=== PATIENT | female | born 1940 | race Caucasian/White ===

== ENCOUNTER 2017-05-26 00:52 | Inpatient (IN) | payer MEDICARE, OTHER ==
[~2017-05-26] VITALS: Ht 149.9 cm; Wt 83.0 kg
[2017-05-26] VITALS (10 sets, daily range): BP systolic 108–139; BP diastolic 45–88
[~2017-05-26 00:52] MED LIST: ALPR-384 PO; ASPI81TA52 PO; ATOR10TA87 PO; CLOP75TA35 PO; LEVO150T PO; LINA145C PO; LYR75C PO; METH500T PO
[2017-05-26] MEDS ORDERED: normal saline 1000ML IV soln IV ONE (01:15)
[2017-05-26] MEDS ORDERED: acetaminophen 325mg tablet PO ONE (01:20)
[2017-05-26 02:01] LABS: BASOPHILS # (AUTO) 0.1 X10'3 (0-0.2); BASOPHILS % (AUTO) 0.5 % (0-1); EOSINOPHILS # (AUTO) 0.4 X10'3 (0-0.9); EOSINOPHILS % (AUTO) 3.5 % (0-6); LYMPHOCYTES % (AUTO) 15.8 % (21-51); MEAN CORPUSCULAR HEMOGLOBIN 30.6 PG (27.0-31.0); MEAN CORPUSCULAR HGB CONC 35.1 % (33.0-36.5); MEAN CORPUSCULAR VOLUME 87.1 FL (78-98); MEAN PLATELET VOLUME 7.6 FL (7.4-10.4); MONOCYTES # (AUTO) 1.3 X10'3 (0-0.9); MONOCYTES % (AUTO) 10.8 % (2-12); NEUTROPHILS # (AUTO) 8.6 X10'3 (1.8-7.7); NEUTROPHILS % (AUTO) 69.4 % (42-75); PLATELET COUNT 474 X10'3 (140-440); WHITE BLOOD COUNT 12.4 X10'3 (4.5-11.0)
[2017-05-26 02:09] LABS: HEMOGLOBIN 5.8 g/dl (12.0-16.0)
[2017-05-26 02:10] LABS: HEMATOCRIT 16.6 % (35.0-45.0)
[2017-05-26 02:13] LABS: INR 0.9 INR; PARTIAL THROMBOPLASTIN TIME 30 SECONDS (22-32); PROTHROMBIN TIME 9.6 SECONDS (9.0-12.0)
[2017-05-26 02:16] LABS: ALANINE AMINOTRANSFERASE 25 U/L (12-78); ALBUMIN 3.6 G/DL (3.4-5.0); ALBUMIN/GLOBULIN RATIO 0.9 (1.1-1.5); ALKALINE PHOSPHATASE 75 IU/L (46-116); ANION GAP 9 (8-16); ASPARTATE AMINO TRANSFERASE 18 U/L (10-37); BILIRUBIN,TOTAL 0.4 MG/DL (0.1-1.0); BLOOD UREA NITROGEN 17 MG/DL (7-18); BUN/CREATININE RATIO 16.2 (6.6-38.0); CALCIUM 9.7 MG/DL (8.5-10.1); CHLORIDE 102 MMOL/L (99-107); CREATININE 1.05 MG/DL (0.40-0.90); GLUCOSE 103 MG/DL (70-104); MAGNESIUM 1.9 MG/DL (1.5-2.4); POTASSIUM 4.5 MMOL/L (3.5-5.1); SODIUM 137 MMOL/L (135-145); TOTAL CARBON DIOXIDE 26.2 MMOL/L (24-32); TOTAL PROTEIN 7.6 G/DL (6.4-8.2); eGFR 51 ML/MIN
[2017-05-26] MEDS ORDERED: oseltamivir phos 75mg capsule PO ONE (02:40)
[2017-05-26] MEDS: normal saline 1000ml 1,000 ML IV SCH ×3 (02:57→22:57)
[2017-05-26 03:00] LABS: CLARITY,URINE CLEAR (Clear); COLOR,URINE YELLOW (Yellow); GLUCOSE, URINE NEGATIVE (Neg); KETONES,URINE NEGATIVE (Neg); LEUKOCYTE ESTERASE ,URINE TRACE (Neg); NITRITES, URINE NEGATIVE (Neg); OCCULT BLOOD,URINE NEGATIVE (Neg); PROTEIN,URINE NEGATIVE (Neg); UA COLLECTION TYPE CLN CATCH MIDSTREAM; UROBILINOGEN,URINE 0.2 E.U/dL (0.2-1.0)
[2017-05-26] MEDS ORDERED: potassium Cl 40MEQ/NS 500ml 500 ML IV PRN ×2 (03:00)
[2017-05-26] MEDS ORDERED: magnesium 2GM in 50ml NS 50 ML IV PRN (03:00)
[2017-05-26] MEDS ORDERED: potassium Cl 20 mEq SR tablet PO PRN ×2 (03:00)
[2017-05-26] MEDS ORDERED: magnesium hydroxide 30ml (MOM) UD suspension PO PRN (03:00)
[2017-05-26] MEDS ORDERED: ipratropium/albuterol 3ml nebule NEB PRN (03:00)
[2017-05-26] MEDS ORDERED: HYDROmorphone inj. 0.5 MG/0.5 ML DISP.SYRIN IV PRN ×2 (03:00)
[2017-05-26] MEDS ORDERED: magnesium 4gm in 100ml NS 100 ML IV PRN (03:00)
[2017-05-26] MEDS ORDERED: ondansetron/PF 4mg/2ml inj IV PRN (03:00)
[2017-05-26] MEDS ORDERED: magnesium Cl slow-release 64mg tablet PO PRN (03:00)
[2017-05-26] MEDS ORDERED: mag hydrox/Alum hydrox/simeth 30ml oral suspension PO PRN (03:00)
[2017-05-26] MEDS ORDERED: albuterol 2.5 MG/3 ML nebule NEB PRN (03:00)
[2017-05-26 03:08] LABS: BACTERIA,URINE FEW /HPF (Neg); MUCUS STRANDS FEW /LPF (Neg); RBC,URINE NONE SEEN /HPF (0-2); SQUAMOUS EPITHELIAL CELL,UR FEW /LPF (FEW)
[2017-05-26 03:43] LABS: % IRON SATURATION 11 % (11-46); IRON 27 UG/DL (49-151); TOTAL IRON BINDING CAPACITY 257 UG/DL (259-388)
[2017-05-26 03:54] LABS: TOTAL CELLS COUNTED 100
[2017-05-26 03:55] LABS: LARGE PLATELETS FEW; PLATELET ESTIMATE INCREASED
[2017-05-26] MEDS: levoFLOXACIN-Levaquin 500mg/D5 100 ML IV SCH ×2 (05:00→20:22)
[2017-05-26] MEDS: pregabalin 75mg capsule PO SCH (08:00)
[2017-05-26] MEDS: K and/or MAG REPLACEMENT MC SCH (08:00)
[2017-05-26] MEDS: cyclobenzaprine 10mg tablet PO SCH ×3 (08:00→20:21)
[2017-05-26] MEDS: levoTHYROXINE 75mcg tablet PO SCH (08:11)
[2017-05-26] MEDS: lactobacillus rhamnosus 10,000 MMU CELLS/CAPSULE PO SCH ×2 (08:11→20:20)
[2017-05-26] MEDS: diatr meglu/diatrizoate 30ml oral sol.-(3 dose) bottle PO SCH ×3 (09:50→16:36)
[2017-05-26 12:16] LABS: HEMATOCRIT 40.9 % (35.0-45.0); HEMOGLOBIN 13.9 g/dl (12.0-16.0); MEAN CORPUSCULAR HEMOGLOBIN 29.8 PG (27.0-31.0); MEAN CORPUSCULAR HGB CONC 34.1 % (33.0-36.5); MEAN CORPUSCULAR VOLUME 87.4 FL (78-98); MEAN PLATELET VOLUME 7.4 FL (7.4-10.4); PLATELET COUNT 275 X10'3 (140-440); RED BLOOD COUNT 4.68 X10'6 (4.20-5.60); RED CELL DISTRIBUTION WIDTH 14.1 % (11.5-14.5); WHITE BLOOD COUNT 4.9 X10'3 (4.5-11.0)
[2017-05-26] MEDS ORDERED: iohexol 300mg/ml 100ml inj. ONE (16:29)
[2017-05-26] MEDS ORDERED: diatr meglu/diatrizoate 30ml oral sol.-(3 dose) bottle PO ONE (16:35)
[2017-05-26 19:52] LABS: HEMATOCRIT 41.8 % (35.0-45.0); HEMOGLOBIN 14.3 g/dl (12.0-16.0); MEAN CORPUSCULAR HEMOGLOBIN 29.8 PG (27.0-31.0); MEAN CORPUSCULAR HGB CONC 34.2 % (33.0-36.5); MEAN CORPUSCULAR VOLUME 87.1 FL (78-98); MEAN PLATELET VOLUME 7.4 FL (7.4-10.4); PLATELET COUNT 268 X10'3 (140-440); RED CELL DISTRIBUTION WIDTH 14.2 % (11.5-14.5); WHITE BLOOD COUNT 5.8 X10'3 (4.5-11.0)
[2017-05-26] MEDS: acetaminophen 325mg tablet PO PRN (20:19)
[2017-05-26] MEDS ORDERED: atorvastatin 10mg tablet PO SCH (21:00)
[2017-05-26] MEDS ORDERED: temazepam 15mg capsule PO PRN (21:00)
[2017-05-27] MEDS: benzonatate 100mg capsule PO PRN ×2 (01:08→09:10)
[2017-05-27 03:00] VITALS: BP 101/45
[2017-05-27 05:03] LABS: ANION GAP 9 (8-16); BLOOD UREA NITROGEN 13 MG/DL (7-18); BUN/CREATININE RATIO 12.6 (6.6-38.0); CHLORIDE 107 MMOL/L (99-107); CREATININE 1.03 MG/DL (0.40-0.90); GLUCOSE 92 MG/DL (70-104); MAGNESIUM 1.9 MG/DL (1.5-2.4); POTASSIUM 4.2 MMOL/L (3.5-5.1); SODIUM 143 MMOL/L (135-145); TOTAL CARBON DIOXIDE 27.1 MMOL/L (24-32); eGFR 52 ML/MIN
[2017-05-27 05:17] LABS: BASOPHILS % (AUTO) 0.5 % (0-1); EOSINOPHILS # (AUTO) 0.2 X10'3 (0-0.9); EOSINOPHILS % (AUTO) 4.3 % (0-6); HEMOGLOBIN 13.5 g/dl (12.0-16.0); LYMPHOCYTES # (AUTO) 1.3 X10'3 (1.1-4.8); LYMPHOCYTES % (AUTO) 26.9 % (21-51); MEAN CORPUSCULAR HEMOGLOBIN 29.3 PG (27.0-31.0); MEAN CORPUSCULAR HGB CONC 33.8 % (33.0-36.5); MEAN CORPUSCULAR VOLUME 86.6 FL (78-98); MEAN PLATELET VOLUME 7.8 FL (7.4-10.4); MONOCYTES # (AUTO) 0.9 X10'3 (0-0.9); MONOCYTES % (AUTO) 17.8 % (2-12); NEUTROPHILS # (AUTO) 2.5 X10'3 (1.8-7.7); NEUTROPHILS % (AUTO) 50.5 % (42-75); PLATELET COUNT 274 X10'3 (140-440); RED BLOOD COUNT 4.61 X10'6 (4.20-5.60); RED CELL DISTRIBUTION WIDTH 13.3 % (11.5-14.5); WHITE BLOOD COUNT 4.9 X10'3 (4.5-11.0)
[2017-05-27 06:00] VITALS: BP 136/81
[2017-05-27] MEDS: pregabalin 75mg capsule PO SCH (07:06)
[2017-05-27] MEDS: cyclobenzaprine 10mg tablet PO SCH ×2 (07:06→12:58)
[2017-05-27] MEDS: lactobacillus rhamnosus 10,000 MMU CELLS/CAPSULE PO SCH (07:47)
[2017-05-27] MEDS: levoTHYROXINE 75mcg tablet PO SCH (07:48)
[2017-05-27] MEDS: normal saline 1000ml 1,000 ML IV SCH (07:51)
[2017-05-27] MEDS: K and/or MAG REPLACEMENT MC SCH (07:54)
[2017-05-27 11:00] VITALS: BP 137/75
[2017-05-27 11:01] LABS: HEMATOCRIT 38.4 % (35.0-45.0); HEMOGLOBIN 13.2 g/dl (12.0-16.0); MEAN CORPUSCULAR HEMOGLOBIN 29.8 PG (27.0-31.0); MEAN CORPUSCULAR HGB CONC 34.4 % (33.0-36.5); MEAN CORPUSCULAR VOLUME 86.8 FL (78-98); MEAN PLATELET VOLUME 7.4 FL (7.4-10.4); PLATELET COUNT 250 X10'3 (140-440); RED BLOOD COUNT 4.43 X10'6 (4.20-5.60); RED CELL DISTRIBUTION WIDTH 14.2 % (11.5-14.5); WHITE BLOOD COUNT 5.3 X10'3 (4.5-11.0)
[2017-05-27] MEDS ORDERED: LEVO500T2 PO (11:18)
[2017-05-27] MEDS ORDERED: FERR325T39 PO (11:18)
[2017-05-27] MEDS ORDERED: ALBU8.5H8 INH (11:18)
[2017-05-27] MEDS ORDERED: benzocaine/menthol oral lozeng 1 EACH BOX MM PRN (12:10)
[2017-05-27] MEDS: acetaminophen 325mg tablet PO PRN (13:06)
[2017-05-27 14:42] LABS: OCCULT BLOOD STOOL NEGATIVE (Neg)
== END 2017-05-27 14:50 | disposition home or self-care (01) | DRG 812 ==
LOC: ER 00:53 → ED HOLD 02:57 → PCU 3S 07:45
PROVIDERS: ADMIT Internal Medicine; ATTEND Internal Medicine
PROC: 30233N1 Transfusion of Nonautologous Red Blood Cells into Peripheral Vein, Percutaneous Approach (ICD-10-PCS; principal; 2017-05-26)
DX: D50.9 Iron deficiency anemia, unspecified (principal); J20.9 Acute bronchitis, unspecified; E03.9 Hypothyroidism, unspecified; E78.00 Pure hypercholesterolemia, unspecified; F32.89 Other specified depressive episodes; Z86.73 Personal history of transient ischemic attack (TIA), and cerebral infarction without residual deficits; Z88.8 Allergy status to other drugs, medicaments and biological substances; Z98.49 Cataract extraction status, unspecified eye
CPT/HCPCS: 36415; 71045; 74177; 80048; 80053; 81001; 82272; 83540; 83550; 83605; 83735; 84145; 85025; 85027; 85610; 85730; 86885; 86900; 86901; 86920; 86945; 87040; 87070; 87088; 93005; 93306; 94760; 99285; J1956; J7030; P9016; Q9963; Q9967

== ENCOUNTER 2018-01-30 22:52 | Emergency (ER) | payer MEDICARE, OTHER ==
[~2018-01-30] VITALS: Ht 152.4 cm; Wt 77.0 kg
[~2018-01-30 22:52] MED LIST changes: +ALBU8.5H8 INH; +FERR325T39 PO
[2018-01-30 23:30] LABS: BASOPHILS % (AUTO) 0.4 % (0-1); EOSINOPHILS # (AUTO) 0.2 X10'3 (0-0.9); EOSINOPHILS % (AUTO) 2.7 % (0-6); HEMOGLOBIN 12.4 g/dl (12.0-16.0); LYMPHOCYTES # (AUTO) 2.3 X10'3 (1.1-4.8); MEAN CORPUSCULAR HEMOGLOBIN 29.8 PG (27.0-31.0); MEAN CORPUSCULAR HGB CONC 33.6 % (33.0-36.5); MEAN CORPUSCULAR VOLUME 88.6 FL (78-98); MEAN PLATELET VOLUME 7.9 FL (7.4-10.4); MONOCYTES # (AUTO) 0.5 X10'3 (0-0.9); MONOCYTES % (AUTO) 7.8 % (2-12); NEUTROPHILS # (AUTO) 3.9 X10'3 (1.8-7.7); NEUTROPHILS % (AUTO) 56.1 % (42-75); PLATELET COUNT 317 X10'3 (140-440); RED BLOOD COUNT 4.18 X10'6 (4.20-5.60)
[2018-01-30 23:42] LABS: ALANINE AMINOTRANSFERASE 18 U/L (12-78); ALBUMIN 3.8 G/DL (3.4-5.0); ALBUMIN/GLOBULIN RATIO 1.1 (1.1-1.5); ALKALINE PHOSPHATASE 94 IU/L (46-116); ANION GAP 11 (8-16); ASPARTATE AMINO TRANSFERASE 16 U/L (10-37); BILIRUBIN,TOTAL 0.2 MG/DL (0.1-1.0); BLOOD UREA NITROGEN 11 MG/DL (7-18); BUN/CREATININE RATIO 11.1 (6.6-38.0); CALCIUM 9.5 MG/DL (8.5-10.1); CHLORIDE 104 MMOL/L (99-107); CREATININE 0.99 MG/DL (0.40-0.90); GLUCOSE 102 MG/DL (70-104); POTASSIUM 3.9 MMOL/L (3.5-5.1); SODIUM 140 MMOL/L (135-145); TOTAL CARBON DIOXIDE 24.8 MMOL/L (24-32); TOTAL PROTEIN 7.4 G/DL (6.4-8.2); eGFR 54 ML/MIN
[2018-01-30 23:46] LABS: INR 0.9 INR; PROTHROMBIN TIME 9.2 SECONDS (9.0-12.0)
[2018-01-31] MEDS ORDERED: acetaminophen 325mg tablet PO ONE (00:05)
[2018-01-31 00:20] LABS: CLARITY,URINE CLEAR (Clear); COLOR,URINE YELLOW (Yellow); GLUCOSE, URINE NEGATIVE (Neg); KETONES,URINE NEGATIVE (Neg); LEUKOCYTE ESTERASE ,URINE NEGATIVE (Neg); NITRITES, URINE NEGATIVE (Neg); OCCULT BLOOD,URINE NEGATIVE (Neg); PH,URINE 5.5 (4.8-8.0); PROTEIN,URINE NEGATIVE (Neg); UROBILINOGEN,URINE 0.2 E.U/dL (0.2-1.0)
[2018-01-31 00:23] LABS: UA COLLECTION TYPE CLN CATCH MIDSTREAM
[2018-01-31 00:30] LABS: LIPASE 266 U/L (73-393)
[2018-01-31] MEDS ORDERED: BISA-155 PO (01:38)
[2018-01-31] MEDS ORDERED: HYDR-3965 PO (01:38)
[2018-01-31] MEDS ORDERED: HYDROcodone/acetaminophen 5mg/325mg tablet PO ONE (01:40)
[2018-01-31] MEDS ORDERED: dicyclomine 10 MG capsule PO ONE (01:40)
[2018-01-31 01:58] VITALS: BP 154/78
== END 2018-01-31 01:59 | disposition home or self-care (01) ==
LOC: ER 22:52
DX: R10.31 Right lower quadrant pain (principal); E78.00 Pure hypercholesterolemia, unspecified; E03.9 Hypothyroidism, unspecified; G89.29 Other chronic pain; Z86.73 Personal history of transient ischemic attack (TIA), and cerebral infarction without residual deficits; Z98.890 Other specified postprocedural states; Z88.8 Allergy status to other drugs, medicaments and biological substances; Z79.82 Long term (current) use of aspirin; Z79.899 Other long term (current) drug therapy
CPT/HCPCS: 36415; 74176; 80053; 81003; 83605; 83690; 85025; 85610; 99284

== ENCOUNTER 2018-06-11 18:58 | Inpatient (IN) | payer MEDICARE, OTHER ==
[~2018-06-11] VITALS: Ht 149.9 cm; Wt 72.7 kg
[~2018-06-11 18:58] MED LIST changes: +BISA-155 PO
[2018-06-11] MEDS ORDERED: CefTRIAXone 2gm/D5W 50ml 50 ML IV ONE (21:05)
[2018-06-11] MEDS ORDERED: normal saline 1000ML IV soln IV ONE (21:05)
[2018-06-11 21:21] LABS: BASOPHILS % (AUTO) 0.6 % (0-1); EOSINOPHILS # (AUTO) 0.1 X10'3 (0-0.9); EOSINOPHILS % (AUTO) 1.2 % (0-6); HEMATOCRIT 37.7 % (35.0-45.0); HEMOGLOBIN 12.5 g/dl (12.0-16.0); LYMPHOCYTES # (AUTO) 1.3 X10'3 (1.1-4.8); LYMPHOCYTES % (AUTO) 25.7 % (21-51); MEAN CORPUSCULAR HEMOGLOBIN 29.2 PG (27.0-31.0); MEAN CORPUSCULAR HGB CONC 33.1 g/dL (33.0-36.5); MEAN CORPUSCULAR VOLUME 88.1 FL (78-98); MEAN PLATELET VOLUME 7.3 FL (7.4-10.4); MONOCYTES # (AUTO) 0.8 X10'3 (0-0.9); NEUTROPHILS # (AUTO) 2.9 X10'3 (1.8-7.7); NEUTROPHILS % (AUTO) 57.5 % (42-75); PLATELET COUNT 267 X10'3 (140-440); RED BLOOD COUNT 4.28 X10'6 (4.20-5.60); RED CELL DISTRIBUTION WIDTH 14.2 % (11.5-14.5); WHITE BLOOD COUNT 5.1 X10'3 (4.5-11.0)
[2018-06-11 21:41] LABS: ALANINE AMINOTRANSFERASE 21 U/L (12-78); ALBUMIN 3.7 G/DL (3.4-5.0); ALKALINE PHOSPHATASE 73 IU/L (46-116); ANION GAP 11 (8-16); ASPARTATE AMINO TRANSFERASE 19 U/L (10-37); BILIRUBIN,TOTAL 0.3 MG/DL (0.1-1.0); BLOOD UREA NITROGEN 24 MG/DL (7-18); BUN/CREATININE RATIO 19.4 (6.6-38.0); CALCIUM 9.5 MG/DL (8.5-10.1); CHLORIDE 103 MMOL/L (99-107); CREATININE 1.24 MG/DL (0.40-0.90); GLUCOSE 111 MG/DL (70-104); SODIUM 139 MMOL/L (135-145); TOTAL CARBON DIOXIDE 25.3 MMOL/L (24-32); TOTAL PROTEIN 7.3 G/DL (6.4-8.2); eGFR 42 ML/MIN
[2018-06-11 21:56] LABS: INR 0.9 INR; PARTIAL THROMBOPLASTIN TIME 34 SECONDS (22-32)
--- NOTE | 2018-06-11 22:14 | NUR ---
HR 121, ST. PT REPORTS GENERALIZED "PAIN ALL OVER". ABDIEL TINSLEY, AT BEDSIDE.
[2018-06-11] MEDS ORDERED: normal saline 1000ML IV soln IVB ONE (22:35)
[2018-06-11] MEDS ORDERED: ATOR10TA87 PO (22:52)
[2018-06-11 22:54] LABS: CLARITY,URINE CLEAR (Clear); COLOR,URINE YELLOW (Yellow); GLUCOSE, URINE NEGATIVE (Neg); KETONES,URINE NEGATIVE (Neg); LEUKOCYTE ESTERASE ,URINE SMALL (Neg); NITRITES, URINE NEGATIVE (Neg); OCCULT BLOOD,URINE NEGATIVE (Neg); PH,URINE 5.5 (4.8-8.0); PROTEIN,URINE NEGATIVE (Neg); UROBILINOGEN,URINE 0.2 E.U/dL (0.2-1.0)
--- NOTE | 2018-06-11 22:55 | NUR ---
MARLIN GAINES TALKING WITH PT AND ALVINA ABOUT ADMISSION. PT IS AGREEABLE TO THIS PLAN. HR 122, OTHERWISE VSS. MED REC COMPLETED
[2018-06-11 22:59] LABS: UA COLLECTION TYPE NON-SPECIFIED
[2018-06-11 23:00] LABS: BACTERIA,URINE NONE SEEN /HPF (Neg); MUCUS STRANDS NONE SEEN /LPF (Neg); RBC,URINE 0-2 /HPF (0-2); SQUAMOUS EPITHELIAL CELL,UR MODERATE /LPF (FEW); WBC,URINE 0-4 /HPF (0-4)
[2018-06-11] MEDS ORDERED: iohexol 350MG/ML 100ml bottle IV ONE (23:14)
--- NOTE | 2018-06-12 00:06 | NUR ---
PT RETURNED FROM CTA. AWAITING HOSPITALIST
--- NOTE | 2018-06-12 00:14 | NUR ---
PT RETURNED FROM CT AND WHEN HOOKED UP BACK TO THE MONITOR HR 158. MARLIN GAINES UPDATED. STAT EKG ORDERED
--- NOTE | 2018-06-12 00:30 | NUR ---
VERBAL RECEIVED FOR TROP SERIES BY MARLIN GAINES.
--- NOTE | 2018-06-12 00:56 | NUR ---
Dr. Walker updated that pt now wheezy after several coughing episodes. Pt reprots feeling "terrible". to order svn.
[2018-06-12] MEDS ORDERED: ipratropium/albuterol 3ml nebule NEB ONE (01:00)
--- NOTE | 2018-06-12 01:12 | NUR ---
rt at bedside now starting svn.
--- NOTE | 2018-06-12 01:32 | NUR ---
PT ASSISTED TO BSC TO VOID. 3RD LITER COMPLETED. PT REPORTS SOME RELIEF FROM SVN TREATMENT. AWAITING CT RESULTS.
[2018-06-12] MEDS ORDERED: azithromycin/NS 500mg/250ml 250 ML IV ONE (01:45)
[2018-06-12] MEDS ORDERED: benzonatate 100mg capsule PO ONE (01:55)
--- NOTE | 2018-06-12 02:44 | NUR ---
dr davalos request pt to be ambulated and to check gait, hr and o2sats. tis is a request from the hospitalist.
[2018-06-12] MEDS ORDERED: metoprolol tartrate 1mg/ml inj IV ONE (03:05)
--- NOTE | 2018-06-12 03:08 | NUR ---
DR. JERNIGAN AT BEDSIDE FOR ADMISSION. HR REMAINS 125.
[2018-06-12] MEDS ORDERED: guaiFENesin/codeine phos 10ml UD oral syrup PO ONE (03:20)
[2018-06-12] MEDS ORDERED: acetaminophen 325mg tablet PO PRN (03:30)
[2018-06-12] MEDS ORDERED: HYDROcodone/acetaminophen 5mg/325mg tablet PO PRN (03:30)
[2018-06-12] MEDS ORDERED: magnesium hydroxide 30ml (MOM) UD suspension PO PRN (03:30)
[2018-06-12] MEDS ORDERED: ondansetron/PF 4mg/2ml inj IV PRN (03:30)
[2018-06-12] MEDS ORDERED: metoprolol tartrate 1mg/ml inj IV PRN (03:30)
[2018-06-12] MEDS ORDERED: mag hydrox/Alum hydrox/simeth 30ml oral suspension PO PRN (03:30)
[2018-06-12] MEDS: normal saline 1000ml 1,000 ML IV SCH ×3 (03:44→23:58)
[2018-06-12 04:30] VITALS: BP 149/78
[2018-06-12 06:00] VITALS: BP 122/59
--- NOTE | 2018-06-12 06:18 | NUR ---
Patient in room PCU 3015. I have received report from VICTOR MANUEL Villanueva and had the opportunity to ask questions and assume patient care.
[2018-06-12] MEDS: azithromycin 250mg tablet PO SCH (08:04)
[2018-06-12] MEDS: aspirin 81mg tablet.DR PO SCH (08:04)
[2018-06-12] MEDS: guaiFENesin/codeine phos 10ml UD oral syrup PO PRN ×5 (08:04→22:41)
[2018-06-12] MEDS: metoprolol tartrate 25mg tablet PO SCH ×2 (08:05→19:43)
[2018-06-12] MEDS: atorvastatin 10mg tablet PO SCH (08:05)
[2018-06-12] MEDS ORDERED: magnesium Cl slow-release 64mg tablet PO PRN (08:50)
[2018-06-12] MEDS ORDERED: potassium Cl 40MEQ/NS 500ml 500 ML IV PRN ×2 (08:50)
[2018-06-12] MEDS ORDERED: potassium Cl 20 mEq SR tablet PO PRN ×2 (08:50)
[2018-06-12] MEDS ORDERED: magnesium 4gm in 100ml NS 100 ML IV PRN (08:50)
[2018-06-12 11:00] VITALS: BP 118/67
[2018-06-12 15:00] VITALS: BP 128/71
--- NOTE | 2018-06-12 15:20 | NUR ---
Robitussin with codeine administered for cough as well as pain r/t cough.
--- NOTE | 2018-06-12 15:34 | NUR ---
PAGER ID: [phone] MESSAGE: [id number] Channing He Pt wheezy, SOB, 95% on RA. Requesting breathing tx, says shiva was effective in ED. VICTOR MANUEL Jamil [id number] Addendum: 06/12/18 at 1549 by Erin Dowling RN Received return call from kamran Candelaria to do Q4H PRN duoneb tx for SOB/wheezing, scheduled Q6HRT duoneb txs.
--- NOTE | 2018-06-12 15:50 | NUR ---
Sent page to RT for breathing tx due to pt is wheezy and c/o SOB, satting 95-96% on RA
[2018-06-12] MEDS: ipratropium/albuterol 3ml nebule NEB PRN (16:29)
[2018-06-12 18:00] VITALS: BP 121/58
--- NOTE | 2018-06-12 18:40 | NUR ---
Problems reprioritized. Patient report given, questions answered & plan of care reviewed with VICTOR MANUEL Tesfaye.
--- NOTE | 2018-06-12 18:43 | NUR ---
Patient in room PCU 3015. I have received report from Loulou RUSH and had the opportunity to ask questions and assume patient care.
[2018-06-12] MEDS: ipratropium/albuterol 3ml nebule NEB SCH (20:07)
[2018-06-12 22:00] VITALS: BP 136/73
[2018-06-12] MEDS: HYDROcodone/acetaminophen 10/325mg tab PO PRN (22:45)
[2018-06-13 02:00] VITALS: BP 112/64
[2018-06-13] MEDS: ipratropium/albuterol 3ml nebule NEB SCH ×4 (02:03→20:13)
--- NOTE | 2018-06-13 04:00 | NUR ---
Patient upset with the IV pump beeping when patient bends arm form AC IV. Patient offered new IV but doesn't want to be poked again. Patient asking for tongue depressors to be taped to arm so she can not bend it. Arm board was placed per patient's request.
[2018-06-13] MEDS: guaiFENesin/codeine phos 10ml UD oral syrup PO PRN ×2 (05:08→20:37)
[2018-06-13 05:56] LABS: BASOPHILS % (AUTO) 0.3 % (0-1); EOSINOPHILS # (AUTO) 0.1 X10'3 (0-0.9); EOSINOPHILS % (AUTO) 1.4 % (0-6); HEMATOCRIT 32.7 % (35.0-45.0); HEMOGLOBIN 10.8 g/dl (12.0-16.0); LYMPHOCYTES # (AUTO) 1.4 X10'3 (1.1-4.8); LYMPHOCYTES % (AUTO) 23.6 % (21-51); MEAN CORPUSCULAR HEMOGLOBIN 29.7 PG (27.0-31.0); MEAN CORPUSCULAR HGB CONC 32.9 g/dL (33.0-36.5); MEAN CORPUSCULAR VOLUME 90.4 FL (78-98); MEAN PLATELET VOLUME 7.6 FL (7.4-10.4); MONOCYTES # (AUTO) 0.7 X10'3 (0-0.9); MONOCYTES % (AUTO) 11.9 % (2-12); NEUTROPHILS # (AUTO) 3.7 X10'3 (1.8-7.7); NEUTROPHILS % (AUTO) 62.8 % (42-75); PLATELET COUNT 206 X10'3 (140-440); RED BLOOD COUNT 3.62 X10'6 (4.20-5.60); RED CELL DISTRIBUTION WIDTH 14.2 % (11.5-14.5); WHITE BLOOD COUNT 5.8 X10'3 (4.5-11.0)
[2018-06-13 06:00] VITALS: BP 110/61
--- NOTE | 2018-06-13 06:26 | NUR ---
Problems reprioritized. Patient report given, questions answered & plan of care reviewed with Loulou RUSH and Silvia RUSH.
[2018-06-13 06:27] LABS: ALANINE AMINOTRANSFERASE 15 U/L (12-78); ALBUMIN 3.1 G/DL (3.4-5.0); ALBUMIN/GLOBULIN RATIO 0.9 (1.1-1.5); ALKALINE PHOSPHATASE 49 IU/L (46-116); ANION GAP 10 (8-16); ASPARTATE AMINO TRANSFERASE 18 U/L (10-37); BILIRUBIN,TOTAL 0.2 MG/DL (0.1-1.0); BLOOD UREA NITROGEN 15 MG/DL (7-18); BUN/CREATININE RATIO 13.9 (6.6-38.0); CALCIUM 8.2 MG/DL (8.5-10.1); CHLORIDE 107 MMOL/L (99-107); CREATININE 1.08 MG/DL (0.40-0.90); GLUCOSE 101 MG/DL (70-104); MAGNESIUM 1.6 MG/DL (1.5-2.4); PHOSPHORUS 3.5 MG/DL (2.3-4.5); POTASSIUM 4.2 MMOL/L (3.5-5.1); SODIUM 141 MMOL/L (135-145); TOTAL PROTEIN 6.4 G/DL (6.4-8.2); eGFR 49 ML/MIN
--- NOTE | 2018-06-13 06:37 | NUR ---
Patient in room PCU 3015. I have received report from Mera RUSH and had the opportunity to ask questions and assume patient care.
[2018-06-13] MEDS: levoTHYROXINE 75mcg tablet PO SCH (06:58)
[2018-06-13] MEDS: atorvastatin 10mg tablet PO SCH (08:22)
[2018-06-13] MEDS: aspirin 81mg tablet.DR PO SCH (08:22)
[2018-06-13] MEDS: azithromycin 250mg tablet PO SCH (08:23)
[2018-06-13] MEDS: metoprolol tartrate 25mg tablet PO SCH ×2 (08:23→20:35)
[2018-06-13] MEDS: normal saline 1000ml 1,000 ML IV SCH ×2 (09:41→20:32)
[2018-06-13] MEDS ORDERED: methylPREDNISolone sod succ 125mg/2ml vial IV ONE (10:30)
[2018-06-13 11:11] VITALS: BP 117/55
[2018-06-13] MEDS: ipratropium/albuterol 3ml nebule NEB PRN (11:49)
[2018-06-13 15:15] VITALS: BP 116/56
[2018-06-13] MEDS: methylPREDNISolone sod succ 125mg/2ml vial IV SCH ×2 (16:59→23:05)
[2018-06-13 18:00] VITALS: BP 121/69
--- NOTE | 2018-06-13 18:00 | NUR ---
Orientee documentation: I have reviewed and agree with interventions, assessments performed and documented by VICTOR MANUEL Velasco.
--- NOTE | 2018-06-13 18:45 | NUR ---
Problems reprioritized. Patient report given, questions answered & plan of care reviewed with Teresa RUSH.
--- NOTE | 2018-06-13 18:49 | NUR ---
Patient in room PCU 3015. I have received report from Silvia RUSH and had the opportunity to ask questions and assume patient care.
[2018-06-13] MEDS: lactobacillus rhamnosus 10,000 MMU CELLS/CAPSULE PO SCH (20:32)
[2018-06-13 22:00] VITALS: BP 120/61
[2018-06-13] MEDS: ALPRAZolam 0.25mg tablet PO PRN (23:05)
[2018-06-13] MEDS: HYDROcodone/acetaminophen 10/325mg tab PO PRN (23:06)
[2018-06-14 02:00] VITALS: BP 146/78
[2018-06-14] MEDS: ipratropium/albuterol 3ml nebule NEB SCH ×5 (02:21→23:15)
[2018-06-14] MEDS: guaiFENesin/codeine phos 10ml UD oral syrup PO PRN ×3 (02:41→16:45)
[2018-06-14 05:21] LABS: BASOPHILS % (AUTO) 0.3 % (0-1); EOSINOPHILS % (AUTO) 0.3 % (0-6); HEMATOCRIT 31.6 % (35.0-45.0); HEMOGLOBIN 10.5 g/dl (12.0-16.0); LYMPHOCYTES # (AUTO) 0.5 X10'3 (1.1-4.8); LYMPHOCYTES % (AUTO) 14.5 % (21-51); MEAN CORPUSCULAR HEMOGLOBIN 29.6 PG (27.0-31.0); MEAN CORPUSCULAR HGB CONC 33.1 g/dL (33.0-36.5); MEAN CORPUSCULAR VOLUME 89.4 FL (78-98); MEAN PLATELET VOLUME 7.7 FL (7.4-10.4); MONOCYTES # (AUTO) 0.1 X10'3 (0-0.9); MONOCYTES % (AUTO) 3.4 % (2-12); NEUTROPHILS # (AUTO) 2.8 X10'3 (1.8-7.7); NEUTROPHILS % (AUTO) 81.5 % (42-75); PLATELET COUNT 195 X10'3 (140-440); RED BLOOD COUNT 3.53 X10'6 (4.20-5.60); RED CELL DISTRIBUTION WIDTH 13.9 % (11.5-14.5); WHITE BLOOD COUNT 3.4 X10'3 (4.5-11.0)
[2018-06-14 05:29] LABS: ALANINE AMINOTRANSFERASE 17 U/L (12-78); ALBUMIN/GLOBULIN RATIO 0.9 (1.1-1.5); ALKALINE PHOSPHATASE 49 IU/L (46-116); ANION GAP 10 (8-16); ASPARTATE AMINO TRANSFERASE 17 U/L (10-37); BILIRUBIN,TOTAL 0.2 MG/DL (0.1-1.0); BLOOD UREA NITROGEN 16 MG/DL (7-18); BUN/CREATININE RATIO 21.6 (6.6-38.0); CALCIUM 8.5 MG/DL (8.5-10.1); CHLORIDE 109 MMOL/L (99-107); CREATININE 0.74 MG/DL (0.40-0.90); GLUCOSE 148 MG/DL (70-104); MAGNESIUM 1.8 MG/DL (1.5-2.4); PHOSPHORUS 2.9 MG/DL (2.3-4.5); POTASSIUM 3.9 MMOL/L (3.5-5.1); SODIUM 142 MMOL/L (135-145); TOTAL PROTEIN 6.5 G/DL (6.4-8.2); eGFR 76 ML/MIN
--- NOTE | 2018-06-14 06:46 | NUR ---
Problems reprioritized. Patient report given, questions answered & plan of care reviewed with Silvia RUSH.
[2018-06-14] MEDS: atorvastatin 10mg tablet PO SCH (07:40)
[2018-06-14] MEDS: levoTHYROXINE 75mcg tablet PO SCH (07:40)
[2018-06-14] MEDS: aspirin 81mg tablet.DR PO SCH (07:40)
[2018-06-14] MEDS: lactobacillus rhamnosus 10,000 MMU CELLS/CAPSULE PO SCH ×2 (07:41→20:07)
[2018-06-14] MEDS: azithromycin 250mg tablet PO SCH (07:41)
[2018-06-14] MEDS: metoprolol tartrate 25mg tablet PO SCH ×2 (07:41→20:08)
[2018-06-14] MEDS: methylPREDNISolone sod succ 125mg/2ml vial IV SCH ×2 (07:42→16:44)
[2018-06-14 08:47] VITALS: BP 137/73
[2018-06-14 11:00] VITALS: BP 128/76
[2018-06-14] MEDS ORDERED: ipratropium/albuterol 3ml nebule NEB PRN (11:05)
--- NOTE | 2018-06-14 11:23 | NUR ---
Patient in room PCU 3015. I have received report from Teresa RUSH and had the opportunity to ask questions and assume patient care.
[2018-06-14] MEDS: levoFLOXACIN 500mg tablet PO SCH (11:53)
--- NOTE | 2018-06-14 14:04 | NUR ---
Orientee documentation and medication administration: I have reviewed and agree with interventions, and assessments performed and documented by VICTOR MANUEL Vega. For this medication-pass time frame, medications were reviewed, dispensed, administered and documented per hospital policy by VICTOR MANUEL Vega.
[2018-06-14 15:00] VITALS: BP 124/57
[2018-06-14 18:00] VITALS: BP 141/83
--- NOTE | 2018-06-14 18:21 | NUR ---
Problems reprioritized. Patient report given, questions answered & plan of care reviewed with Teresa RUSH.
--- NOTE | 2018-06-14 18:48 | NUR ---
Patient in room PCU 3015. I have received report from Silvia RUSH and had the opportunity to ask questions and assume patient care.
[2018-06-14 22:00] VITALS: BP 123/63
[2018-06-14] MEDS: ALPRAZolam 0.25mg tablet PO PRN (22:25)
[2018-06-14] MEDS: HYDROcodone/acetaminophen 10/325mg tab PO PRN (22:26)
[2018-06-15] MEDS: methylPREDNISolone sod succ 125mg/2ml vial IV SCH ×2 (00:20→07:28)
[2018-06-15 02:00] VITALS: BP 144/66
[2018-06-15] MEDS: ipratropium/albuterol 3ml nebule NEB SCH ×3 (02:48→11:40)
[2018-06-15 05:26] LABS: ALANINE AMINOTRANSFERASE 16 U/L (12-78); ALBUMIN 3.1 G/DL (3.4-5.0); ALBUMIN/GLOBULIN RATIO 0.9 (1.1-1.5); ALKALINE PHOSPHATASE 48 IU/L (46-116); ANION GAP 11 (8-16); ASPARTATE AMINO TRANSFERASE 14 U/L (10-37); BILIRUBIN,TOTAL 0.1 MG/DL (0.1-1.0); BLOOD UREA NITROGEN 17 MG/DL (7-18); BUN/CREATININE RATIO 19.3 (6.6-38.0); CHLORIDE 108 MMOL/L (99-107); CREATININE 0.88 MG/DL (0.40-0.90); GLUCOSE 134 MG/DL (70-104); MAGNESIUM 1.9 MG/DL (1.5-2.4); PHOSPHORUS 3.1 MG/DL (2.3-4.5); POTASSIUM 3.7 MMOL/L (3.5-5.1); SODIUM 141 MMOL/L (135-145); TOTAL CARBON DIOXIDE 22.2 MMOL/L (24-32); TOTAL PROTEIN 6.5 G/DL (6.4-8.2); eGFR 62 ML/MIN
[2018-06-15 05:51] LABS: BASOPHILS % (AUTO) 0 % (0-1); EOSINOPHILS % (AUTO) 0 % (0-6); HEMATOCRIT 30.4 % (35.0-45.0); HEMOGLOBIN 10.1 g/dl (12.0-16.0); LYMPHOCYTES # (AUTO) 0.5 X10'3 (1.1-4.8); LYMPHOCYTES % (AUTO) 4.7 % (21-51); MEAN CORPUSCULAR HEMOGLOBIN 29.8 PG (27.0-31.0); MEAN CORPUSCULAR HGB CONC 33.3 g/dL (33.0-36.5); MEAN CORPUSCULAR VOLUME 89.5 FL (78-98); MEAN PLATELET VOLUME 7.9 FL (7.4-10.4); MONOCYTES # (AUTO) 0.3 X10'3 (0-0.9); MONOCYTES % (AUTO) 2.7 % (2-12); NEUTROPHILS # (AUTO) 9.2 X10'3 (1.8-7.7); NEUTROPHILS % (AUTO) 92.6 % (42-75); PLATELET COUNT 254 X10'3 (140-440); RED CELL DISTRIBUTION WIDTH 14.3 % (11.5-14.5); WHITE BLOOD COUNT 9.9 X10'3 (4.5-11.0)
[2018-06-15] MEDS: atorvastatin 10mg tablet PO SCH (07:27)
[2018-06-15] MEDS: levoTHYROXINE 75mcg tablet PO SCH (07:27)
[2018-06-15 07:28] VITALS: BP_SYST 142
[2018-06-15] MEDS: metoprolol tartrate 25mg tablet PO SCH (07:28)
--- NOTE | 2018-06-15 07:28 | NUR ---
Problems reprioritized. Patient report given, questions answered & plan of care reviewed with Liz RSUH.
[2018-06-15] MEDS: aspirin 81mg tablet.DR PO SCH (07:29)
[2018-06-15] MEDS: lactobacillus rhamnosus 10,000 MMU CELLS/CAPSULE PO SCH (07:29)
[2018-06-15] MEDS: levoFLOXACIN 500mg tablet PO SCH (12:37)
--- NOTE | 2018-06-15 13:25 | NUR ---
Patient in room PCU 3015. I have received report from Liz RUSH and had the opportunity to ask questions and assume patient care.
--- NOTE | 2018-06-15 14:15 | NUR ---
Patient discharged at 1415. [employer]ia [employer] provided transportation and was provided with tranfer packet.. PIV removed with cannula intact, telemetry monitoring removed and all patient belongings sent with patient. Pt stable at transfer.
== END 2018-06-15 14:15 | DRG 192 ==
LOC: ER 18:59 → PCU 3S 06-12 04:32 → CMPBEDREQ 06-15 00:21
PROVIDERS: ADMIT Internal Medicine; ATTEND Family Medicine
PROC: BW241ZZ Computerized Tomography (CT Scan) of Chest and Abdomen using Low Osmolar Contrast (ICD-10-PCS; principal; 2018-06-11)
DX: J44.1 Chronic obstructive pulmonary disease with (acute) exacerbation (principal); J40 Bronchitis, not specified as acute or chronic; E78.00 Pure hypercholesterolemia, unspecified; I45.10 Unspecified right bundle-branch block; Z96.643 Presence of artificial hip joint, bilateral; E05.00 Thyrotoxicosis with diffuse goiter without thyrotoxic crisis or storm; F32.9 Major depressive disorder, single episode, unspecified; G89.29 Other chronic pain; Z79.890 Hormone replacement therapy; Z86.73 Personal history of transient ischemic attack (TIA), and cerebral infarction without residual deficits
CPT/HCPCS: 36415; 71045; 71275; 80053; 81001; 83605; 83735; 84100; 84145; 84439; 84443; 84484; 85025; 85610; 85730; 87040; 87070; 87088; 87502; 87503; 93005; 93306; 94640; 94760; 96365; 96366; 96367; 96375; 97110; 97116; 97162; 99285; G0378; J0456; J0696; J2405; J2930; J3490; J7030; Q9967

== ENCOUNTER 2018-06-21 15:36 | Inpatient (IN) | payer MEDICARE, OTHER | END 2018-06-30 12:07 | LOC: CICU 2S 06-22 00:27 → ORTHO 4S 06-25 14:35 → ER 15:36 → SUR 3N 21:10 | PROC: 0DTG0ZZ Resection of Left Large Intestine, Open Approach (ICD-10-PCS; principal; 2018-06-21 02:04) | PROC: 0DTN0ZZ Resection of Sigmoid Colon, Open Approach (ICD-10-PCS; 2018-06-21 02:04) | PROC: 0UT00ZZ Resection of Right Ovary, Open Approach (ICD-10-PCS; 2018-06-21 02:04) | PROC: 0D1M0Z4 Bypass Descending Colon to Cutaneous, Open Approach (ICD-10-PCS; 2018-06-21 02:04) | PROC: 5A1935Z Respiratory Ventilation, Less than 24 Consecutive Hours (ICD-10-PCS; 2018-06-21 02:04) | DX: K56.609 Unspecified intestinal obstruction, unspecified as to partial versus complete obstruction (principal); N17.0 Acute kidney failure with tubular necrosis; J96.00 Acute respiratory failure, unspecified whether with hypoxia or hypercapnia ==

== ENCOUNTER 2018-09-11 07:48 | Emergency (ER) | payer MEDICARE, OTHER ==
[~2018-09-11] VITALS: Ht 152.4 cm; Wt 81.2 kg
[~2018-09-11 07:48] MED LIST changes: +ACET-2144 PO; +ATOR10TA70 PO; -ATOR10TA87 PO; -BISA-155 PO; +BISA10SU60 RC; +BUDE10.22 INH; +CALC500T11 PO; -CLOP75TA35 PO; +CYCL-1 PO; +DOCU-28 PO; -FERR325T39 PO; +FOND2.5D3 SUBCUT; +HYDR-4383 PO; +IPRA3AMP31 IH; +LACT1CAP65 PO; -LEVO150T PO; +LEVO75TA PO; -LINA145C PO; -LYR75C PO; +MAG355OR18 PO; +MAGN400O6 PO; -METH500T PO; +METO50TA7 PO; +MONT10TA24 PO; +NA P133E4 RC; +TRAM50TA2 PO
[2018-09-11 08:05] VITALS: BP 149/72
[2018-09-11] MEDS ORDERED: LIDOcaine 5% patch TP STA (08:27)
[2018-09-11] MEDS ORDERED: LIDO700A32 TOP (08:41)
[2018-09-19] MEDS ORDERED: OMEP20TA5 PO (14:19)
[2018-09-19] MEDS ORDERED: BUSP10TA3 PO (14:19)
== END 2018-09-11 08:57 | disposition home or self-care (01) ==
LOC: ER 07:48
DX: M54.2 Cervicalgia (principal); E78.00 Pure hypercholesterolemia, unspecified; E03.9 Hypothyroidism, unspecified; G89.29 Other chronic pain; F32.9 Major depressive disorder, single episode, unspecified; Z98.890 Other specified postprocedural states; Z88.8 Allergy status to other drugs, medicaments and biological substances; Z79.82 Long term (current) use of aspirin; Z79.899 Other long term (current) drug therapy; Z86.73 Personal history of transient ischemic attack (TIA), and cerebral infarction without residual deficits
CPT/HCPCS: 99282

== ENCOUNTER 2018-09-25 08:06 | Inpatient (IN) | payer MEDICARE, OTHER ==
[2018-09-19 14:20] LABS: CLARITY,URINE CLEAR (Clear); COLOR,URINE YELLOW (Yellow); GLUCOSE, URINE NEGATIVE (Neg); KETONES,URINE NEGATIVE (Neg); LEUKOCYTE ESTERASE ,URINE NEGATIVE (Neg); NITRITES, URINE NEGATIVE (Neg); OCCULT BLOOD,URINE NEGATIVE (Neg); PH,URINE 5.5 (4.8-8.0); PROTEIN,URINE NEGATIVE (Neg); UROBILINOGEN,URINE 0.2 E.U/dL (0.2-1.0)
[2018-09-19 14:21] LABS: UA COLLECTION TYPE CLN CATCH MIDSTREAM
[2018-09-19 14:23] LABS: BASOPHILS % (AUTO) 0.6 % (0-1); EOSINOPHILS # (AUTO) 0.2 X10'3 (0-0.9); EOSINOPHILS % (AUTO) 2.2 % (0-6); LYMPHOCYTES # (AUTO) 2.1 X10'3 (1.1-4.8); LYMPHOCYTES % (AUTO) 26.7 % (21-51); MEAN CORPUSCULAR HEMOGLOBIN 29.8 PG (27.0-31.0); MEAN CORPUSCULAR HGB CONC 33.4 g/dL (33.0-36.5); MEAN CORPUSCULAR VOLUME 89.1 FL (78-98); MEAN PLATELET VOLUME 7.8 FL (7.4-10.4); MONOCYTES # (AUTO) 0.6 X10'3 (0-0.9); MONOCYTES % (AUTO) 7.9 % (2-12); NEUTROPHILS # (AUTO) 4.9 X10'3 (1.8-7.7); NEUTROPHILS % (AUTO) 62.6 % (42-75); PRE OP HEMATOCRIT 38.4 % (35.0-45.0); PRE OP HEMOGLOBIN 12.8 g/dL (12.0-16.0); PRE OP PLATELET COUNT 331 X10'3 (140-440); RED CELL DISTRIBUTION WIDTH 15.9 % (11.5-14.5)
[2018-09-19 14:36] LABS: PRE OP PROTIME 9.7 SECONDS (9.0-12.0)
[2018-09-19 14:37] LABS: ALBUMIN/GLOBULIN RATIO 1.1 (1.1-1.5); ALKALINE PHOSPHATASE 76 IU/L (46-116); BLOOD UREA NITROGEN 18 MG/DL (7-18); BUN/CREATININE RATIO 16.2 (6.6-38.0); CALCIUM 9.7 MG/DL (8.5-10.1); CHLORIDE 107 MMOL/L (99-107); CREATININE 1.11 MG/DL (0.40-0.90); PRE OP ALT 21 U/L (30-65); PRE OP ANION GAP 5 (8-16); PRE OP AST 16 U/L (10-37); PRE OP BILIRUB, TOTAL 0.3 MG/DL (0.0-1.0); PRE OP GLUCOSE 106 MG/DL (70-104); PRE OP POTASSIUM 4.1 MMOL/L (3.4-5.1); PRE OP SODIUM 141 MMOL/L (135-145); TOTAL CARBON DIOXIDE 28.7 MMOL/L (24-32); TOTAL PROTEIN 7.7 G/DL (6.4-8.2); eGFR 48 ML/MIN
[~2018-09-25] VITALS: Ht 152.4 cm; Wt 78.0 kg
[2018-09-25] VITALS (20 sets, daily range): BP systolic 101–142; BP diastolic 52–75
[~2018-09-25 08:06] MED LIST changes: -ACET-2144 PO; -ALBU8.5H8 INH; -ALPR-384 PO; -BISA10SU60 RC; -BUDE10.22 INH; +BUSP10TA3 PO; -CALC500T11 PO; -DOCU-28 PO; -FOND2.5D3 SUBCUT; -IPRA3AMP31 IH; -LACT1CAP65 PO; -MAG355OR18 PO; -MAGN400O6 PO; -MONT10TA24 PO; -NA P133E4 RC; +OMEP20TA5 PO; -TRAM50TA2 PO
[2018-09-25] MEDS ORDERED: ringers solution, lacted 1,000 ML IV SCH ×2 (08:07→08:30)
[2018-09-25] MEDS ORDERED: morphine 4 MG/ML inj SYRINge IV PRN ×2 (08:10)
[2018-09-25] MEDS ORDERED: ondansetron/PF 4mg/2ml inj IV PRN (08:10)
[2018-09-25] MEDS ORDERED: proCHLORperazine 10 MG/2 ml inj IV PRN (08:10)
[2018-09-25] MEDS ORDERED: meperidine/PF 25mg/ml syringe IV PRN ×3 (08:10)
[2018-09-25] MEDS ORDERED: ceFOXitin sod/dextrose 2g/50ml 50 ML IV ONE (08:30)
[2018-09-25] MEDS ORDERED: famotidine 20mg tablet PO ONE (08:30)
[2018-09-25] MEDS ORDERED: DOCUMENT DATE & TIME OF BETA-BLOCKER PO ONE (08:30)
[2018-09-25] MEDS ORDERED: gentamicin 40 MG/1 ML inj ONE (09:00)
[2018-09-25] MEDS ORDERED: clindamycin phosphate 150mg/ml inj. ONE (09:00)
[2018-09-25] MEDS ORDERED: neostigmine methylsulfate 1 MG/ML 10ml vial ONE (10:53)
[2018-09-25] MEDS ORDERED: glycopyrrolate 0.2mg/ml inj ONE (10:53)
[2018-09-25] MEDS ORDERED: sevoflurane 250ml liquid IH ONE (10:53)
[2018-09-25] MEDS ORDERED: rocuronium 10mg/ml inj IV ONE ×2 (10:53→11:15)
[2018-09-25] MEDS ORDERED: midazolam 2 mg/2 ml injection ONE (10:56)
[2018-09-25] MEDS ORDERED: LIDOcaine 2% (20mg/ml) 5ml vial ONE (10:57)
[2018-09-25] MEDS ORDERED: propofol inj 20 ML IV ONE (10:57)
[2018-09-25] MEDS ORDERED: fentaNYL /PF 50mcg/ml 5ml ampule ONE ×2 (10:57→12:50)
[2018-09-25] MEDS ORDERED: ondansetron/PF 4mg/2ml inj ONE (12:52)
[2018-09-25] MEDS ORDERED: dexamethasone sod phosphate 4mg/ml inj. ONE (12:52)
[2018-09-25] MEDS ORDERED: BUPIVAcaine/PF 2.5 mg/ml (0.25%) 30ml vial ONE (14:23)
[2018-09-25] MEDS ORDERED: BUPIVAcaine/PF 2.5mg/ml (0.25%) 10ml vial ONE (14:23)
[2018-09-25] MEDS ORDERED: BUPIVACAINE liposomal/PF 13.3 MG/ML vial IM ONE (14:24)
[2018-09-25] MEDS ORDERED: ketorolac trometh. 30mg/ml inj. ONE (15:16)
--- NOTE | 2018-09-25 15:35 | NUR ---
Received from OR via BED , accompanied by Anesthesiologist DR LONGO and report given by Anesthesiolgist. PATIENT WAKING UP, DENIES PAIN, V/S WNL, NEUROVASCULAR CHECKS INTACT, 20G PIV LUE, SCD ON, 3 ISLAND DRESSING TO ABDOMEN CDI WITH MEKHI MINIMALL DRAINAGE IN MEKHI SO FAR.
[2018-09-25] MEDS ORDERED: HYDROmorphone inj. 0.5 MG/0.5 ML DISP.SYRIN IV PRN (15:45)
[2018-09-25] MEDS: potassium CL 20mEq in D5-1/2NS 1,000 ML IV SCH ×2 (15:45→19:36)
[2018-09-25] MEDS ORDERED: ceFOXitin 1 GM/D5W 50mL IVPB 1,000 GM in normal saline 100ml IV soln 100 ML IV SCH (16:00)
--- NOTE | 2018-09-25 17:05 | NUR ---
PATIENT ORIENTED X4 BUT SLEEPY, C/O PAIN AT TIMES AND SLEEPING AT OTHER TIMES, V/S WNL, NEUROVASCULAR CHECKS INTACT, 20G PIV LUE, SCD ON, 3 ISLAND DRESSING TO ABDOMEN CDI WITH MEKHI 50CC DRAINAGE IN MEKHI SO FAR. TELE PLACED ON PATIENT. PATIENT TAKEN TO 344A WITH ALL BELONGINGS AND HOOKED UP TO MONITORS IN ROOM AND REPORT GIVEN TO RN WHO HAS TAKEN OVER PATIENT CARE.
--- NOTE | 2018-09-25 17:30 | NUR ---
Patient to room 344A from recovery. Patient alert and complaining of pain at this time. Patient was given morphine 30 minutes ago and is not due for pain medication at this time. VSS. BLL. Call light in reach.
--- NOTE | 2018-09-25 18:35 | NUR ---
Patient in room GLYNN 344. I have received report from Brianna RUSH and had the opportunity to ask questions and assume patient care.
--- NOTE | 2018-09-25 18:47 | NUR ---
Problems reprioritized. Patient report given, questions answered & plan of care reviewed with VICTOR MANUEL Albarran.
[2018-09-25] MEDS ORDERED: HYDROmorphone 1 mg/ml syringe IV PRN (18:55)
[2018-09-25] MEDS: HYDROmorphone 1 mg/ml syringe IV PRN (19:05)
[2018-09-25] MEDS ORDERED: insulin Lispro (HumaLOG) vial - multi-dose SQ SCH (19:25)
[2018-09-25] MEDS ORDERED: glucagon, human recombinant 1mg kit SUBCUT PRN (19:25)
[2018-09-25] MEDS ORDERED: dextrose 50%-water 50ml dispensing syringe IV PRN ×2 (19:25)
[2018-09-25] MEDS ORDERED: dextrose ORAL solution 15 GM/59 ML bottle PO PRN ×2 (19:25)
[2018-09-25] MEDS ORDERED: MESSAGE TO PHARMACY PO ONE (19:25)
[2018-09-25] MEDS ORDERED: insulin glargine (Lantus) pen - multi-dose SQ SCH (21:00)
[2018-09-25] MEDS: metoprolol succinate 25mg (24-HOUR) SR. Tablet PO SCH (21:17)
[2018-09-26] VITALS: BP 122/56
[2018-09-26] MEDS ORDERED: ceFOXitin 1 GM/D5W 50mL IVPB 50 ML IV ONE (00:29)
[2018-09-26] MEDS: HYDROmorphone 1 mg/ml syringe IV PRN ×4 (03:00→20:26)
[2018-09-26] MEDS: potassium CL 20mEq in D5-1/2NS 1,000 ML IV SCH ×2 (03:07→11:14)
[2018-09-26 04:00] VITALS: BP 109/45
[2018-09-26 05:04] LABS: BASOPHILS % (AUTO) 0.1 % (0-1); EOSINOPHILS # (AUTO) 0.1 X10'3 (0-0.9); EOSINOPHILS % (AUTO) 0.6 % (0-6); HEMOGLOBIN 11.1 g/dl (12.0-16.0); LYMPHOCYTES # (AUTO) 0.6 X10'3 (1.1-4.8); LYMPHOCYTES % (AUTO) 4.4 % (21-51); MEAN CORPUSCULAR HEMOGLOBIN 29.5 PG (27.0-31.0); MEAN CORPUSCULAR HGB CONC 32.5 g/dL (33.0-36.5); MEAN CORPUSCULAR VOLUME 90.9 FL (78-98); MEAN PLATELET VOLUME 7.7 FL (7.4-10.4); MONOCYTES % (AUTO) 7.3 % (2-12); NEUTROPHILS # (AUTO) 11.7 X10'3 (1.8-7.7); NEUTROPHILS % (AUTO) 87.6 % (42-75); PLATELET COUNT 274 X10'3 (140-440); RED BLOOD COUNT 3.75 X10'6 (4.20-5.60); WHITE BLOOD COUNT 13.4 X10'3 (4.5-11.0)
[2018-09-26 05:32] LABS: POTASSIUM 5.6 MMOL/L (3.5-5.1)
[2018-09-26 05:43] LABS: ALBUMIN 2.9 G/DL (3.4-5.0); ANION GAP 7 (8-16); BLOOD UREA NITROGEN 17 MG/DL (7-18); CALCIUM 8.6 MG/DL (8.5-10.1); CHLORIDE 106 MMOL/L (99-107); CREATININE 1.21 MG/DL (0.40-0.90); GLUCOSE 170 MG/DL (70-104); SODIUM 139 MMOL/L (135-145); TOTAL CARBON DIOXIDE 26.2 MMOL/L (24-32); eGFR 43 ML/MIN
[2018-09-26 06:00] VITALS: BP 115/46
--- NOTE | 2018-09-26 06:10 | NUR ---
Problems reprioritized. Patient report given, questions answered & plan of care reviewed with Zulma Mehta. Addendum: 09/26/18 at 0611 by Avis Scanlon RN Amended: Links added.
--- NOTE | 2018-09-26 06:16 | NUR ---
Patient in room GLYNN 344. I have received report from VICTOR MANUEL Albarran and had the opportunity to ask questions and assume patient care.
[2018-09-26] MEDS ORDERED: CYCL10TA26 PO (09:47)
[2018-09-26 11:00] VITALS: BP 139/72
[2018-09-26] MEDS: dextrose 5%-1/2 normal saline 1,000 ML IV SCH ×2 (12:04→20:24)
--- NOTE | 2018-09-26 12:22 | NUR ---
patient refusing blood sugar check. Patient says she is not diabetic. History recorded does not show that she is diabetic. A1C 5.4. Will address with
[2018-09-26] MEDS: HYDROcodone/acetaminophen 10/325mg tab PO PRN ×2 (12:50→23:12)
[2018-09-26] MEDS: ondansetron/PF 4mg/2ml inj IV PRN (15:20)
[2018-09-26 18:30] VITALS: BP 100/52
--- NOTE | 2018-09-26 18:30 | NUR ---
Patient in room GLYNN 344. I have received report from Zulma RUHS and had the opportunity to ask questions and assume patient care.
--- NOTE | 2018-09-26 18:55 | NUR ---
Problems reprioritized. Patient report given, questions answered & plan of care reviewed with VICTOR MANUEL Fernandez.
[2018-09-26] MEDS: metoprolol succinate 25mg (24-HOUR) SR. Tablet PO SCH (21:57)
[2018-09-26 23:54] VITALS: BP 110/50
[2018-09-27] MEDS: HYDROmorphone 1 mg/ml syringe IV PRN ×3 (00:48→09:42)
--- NOTE | 2018-09-27 01:17 | NUR ---
Patient has been refusing to walk this evening, states she will "walk in the morning.". Pt educated on importance of movement and walking post bowel surgery and the possibility of ileus.
[2018-09-27] MEDS: dextrose 5%-1/2 normal saline 1,000 ML IV SCH ×3 (04:36→19:25)
[2018-09-27 05:11] LABS: ALBUMIN 2.8 G/DL (3.4-5.0); ANION GAP 6 (8-16); BLOOD UREA NITROGEN 12 MG/DL (7-18); BUN/CREATININE RATIO 11.2 (6.6-38.0); CALCIUM 7.6 MG/DL (8.5-10.1); CHLORIDE 104 MMOL/L (99-107); CREATININE 1.07 MG/DL (0.40-0.90); GLUCOSE 115 MG/DL (70-104); POTASSIUM 3.9 MMOL/L (3.5-5.1); SODIUM 136 MMOL/L (135-145); TOTAL CARBON DIOXIDE 25.6 MMOL/L (24-32); eGFR 50 ML/MIN
--- NOTE | 2018-09-27 06:15 | NUR ---
Problems reprioritized. Patient report given, questions answered & plan of care reviewed with Bubba and Bailey RNs.
[2018-09-27 07:09] LABS: BASOPHILS % (AUTO) 0.2 % (0-1); EOSINOPHILS # (AUTO) 0.7 X10'3 (0-0.9); EOSINOPHILS % (AUTO) 6.7 % (0-6); HEMATOCRIT 27.5 % (35.0-45.0); HEMOGLOBIN 9.2 g/dl (12.0-16.0); LYMPHOCYTES # (AUTO) 1.6 X10'3 (1.1-4.8); LYMPHOCYTES % (AUTO) 15.4 % (21-51); MEAN CORPUSCULAR HEMOGLOBIN 30.1 PG (27.0-31.0); MEAN CORPUSCULAR HGB CONC 33.3 g/dL (33.0-36.5); MEAN CORPUSCULAR VOLUME 90.4 FL (78-98); MEAN PLATELET VOLUME 8.2 FL (7.4-10.4); MONOCYTES # (AUTO) 0.7 X10'3 (0-0.9); NEUTROPHILS # (AUTO) 7.3 X10'3 (1.8-7.7); NEUTROPHILS % (AUTO) 70.7 % (42-75); PLATELET COUNT 238 X10'3 (140-440); RED BLOOD COUNT 3.04 X10'6 (4.20-5.60); RED CELL DISTRIBUTION WIDTH 15.6 % (11.5-14.5); WHITE BLOOD COUNT 10.4 X10'3 (4.5-11.0)
[2018-09-27 07:33] VITALS: BP 103/55
[2018-09-27] MEDS: ondansetron/PF 4mg/2ml inj IV PRN (09:46)
[2018-09-27 11:00] VITALS: BP 113/59
[2018-09-27] MEDS ORDERED: oxyCODONE/APAP 10/325mg tablet PO PRN (12:30)
[2018-09-27] MEDS: oxyCODONE/APAP 10/325mg tablet PO PRN ×2 (13:04→20:04)
[2018-09-27 18:00] VITALS: BP 131/50
--- NOTE | 2018-09-27 18:30 | NUR ---
Patient in room GLYNN 344. I have received report from Alec rodriguez and had the opportunity to ask questions and assume patient care.
[2018-09-27] MEDS: metoprolol succinate 25mg (24-HOUR) SR. Tablet PO SCH (20:02)
--- NOTE | 2018-09-27 22:34 | NUR ---
PATIENT WAS COUGHING AND EXPECTORATING SOME MUCUS. I.S. EXPLAINED AND BENEFITS OF USE POST SURGERY DISCUSSED. PATIENT REFUSED TO ACCEPT IS.
[2018-09-28] VITALS: BP 106/51
[2018-09-28] MEDS: dextrose 5%-1/2 normal saline 1,000 ML IV SCH ×3 (03:50→20:36)
[2018-09-28 06:10] LABS: BASOPHILS % (AUTO) 0.4 % (0-1); EOSINOPHILS # (AUTO) 0.6 X10'3 (0-0.9); EOSINOPHILS % (AUTO) 9.2 % (0-6); HEMATOCRIT 26.9 % (35.0-45.0); LYMPHOCYTES # (AUTO) 1.4 X10'3 (1.1-4.8); LYMPHOCYTES % (AUTO) 23.4 % (21-51); MEAN CORPUSCULAR HEMOGLOBIN 30.5 PG (27.0-31.0); MEAN CORPUSCULAR HGB CONC 33.4 g/dL (33.0-36.5); MEAN CORPUSCULAR VOLUME 91.2 FL (78-98); MEAN PLATELET VOLUME 7.9 FL (7.4-10.4); MONOCYTES # (AUTO) 0.5 X10'3 (0-0.9); MONOCYTES % (AUTO) 8.8 % (2-12); NEUTROPHILS # (AUTO) 3.6 X10'3 (1.8-7.7); NEUTROPHILS % (AUTO) 58.2 % (42-75); PLATELET COUNT 229 X10'3 (140-440); RED BLOOD COUNT 2.95 X10'6 (4.20-5.60); RED CELL DISTRIBUTION WIDTH 15.4 % (11.5-14.5); WHITE BLOOD COUNT 6.1 X10'3 (4.5-11.0)
[2018-09-28 06:20] LABS: ALBUMIN 2.6 G/DL (3.4-5.0); ANION GAP 6 (8-16); BLOOD UREA NITROGEN 6 MG/DL (7-18); BUN/CREATININE RATIO 5.9 (6.6-38.0); CALCIUM 7.8 MG/DL (8.5-10.1); CHLORIDE 108 MMOL/L (99-107); CREATININE 1.02 MG/DL (0.40-0.90); GLUCOSE 96 MG/DL (70-104); POTASSIUM 3.8 MMOL/L (3.5-5.1); SODIUM 140 MMOL/L (135-145); TOTAL CARBON DIOXIDE 26.4 MMOL/L (24-32); eGFR 53 ML/MIN
--- NOTE | 2018-09-28 06:20 | NUR ---
Problems reprioritized. Patient report given, questions answered & plan of care reviewed with ABHI RN.
--- NOTE | 2018-09-28 06:30 | NUR ---
Patient in room GLYNN 344. I have received report from STONE RUSH and had the opportunity to ask questions and assume patient care.
[2018-09-28 07:00] VITALS: BP 114/65
[2018-09-28] MEDS: ondansetron/PF 4mg/2ml inj IV PRN (07:51)
[2018-09-28 11:00] VITALS: BP 126/41
[2018-09-28] MEDS: oxyCODONE/APAP 10/325mg tablet PO PRN ×2 (15:21→23:04)
--- NOTE | 2018-09-28 18:30 | NUR ---
Problems reprioritized. Patient report given, questions answered & plan of care reviewed with FLACO RUSH.
[2018-09-28 20:00] VITALS: BP 143/81
[2018-09-28] MEDS: metoprolol succinate 25mg (24-HOUR) SR. Tablet PO SCH (22:27)
[2018-09-29] VITALS: BP 151/65
[2018-09-29] MEDS: dextrose 5%-1/2 normal saline 1,000 ML IV SCH (04:46)
[2018-09-29 05:30] LABS: ALBUMIN 2.4 G/DL (3.4-5.0); ANION GAP 6 (8-16); BLOOD UREA NITROGEN 3 MG/DL (7-18); BUN/CREATININE RATIO 3.3 (6.6-38.0); CALCIUM 7.9 MG/DL (8.5-10.1); CHLORIDE 110 MMOL/L (99-107); CREATININE 0.92 MG/DL (0.40-0.90); GLUCOSE 117 MG/DL (70-104); POTASSIUM 3.8 MMOL/L (3.5-5.1); SODIUM 143 MMOL/L (135-145); TOTAL CARBON DIOXIDE 27.5 MMOL/L (24-32); eGFR 59 ML/MIN
[2018-09-29 05:37] LABS: BASOPHILS % (AUTO) 0.2 % (0-1); EOSINOPHILS # (AUTO) 0.5 X10'3 (0-0.9); EOSINOPHILS % (AUTO) 7.3 % (0-6); HEMATOCRIT 26.1 % (35.0-45.0); HEMOGLOBIN 8.7 g/dl (12.0-16.0); LYMPHOCYTES # (AUTO) 1.2 X10'3 (1.1-4.8); LYMPHOCYTES % (AUTO) 16.3 % (21-51); MEAN CORPUSCULAR HEMOGLOBIN 29.9 PG (27.0-31.0); MEAN CORPUSCULAR HGB CONC 33.2 g/dL (33.0-36.5); MEAN CORPUSCULAR VOLUME 90.3 FL (78-98); MEAN PLATELET VOLUME 8.1 FL (7.4-10.4); MONOCYTES # (AUTO) 0.5 X10'3 (0-0.9); MONOCYTES % (AUTO) 6.8 % (2-12); NEUTROPHILS # (AUTO) 4.9 X10'3 (1.8-7.7); NEUTROPHILS % (AUTO) 69.4 % (42-75); PLATELET COUNT 252 X10'3 (140-440); RED CELL DISTRIBUTION WIDTH 15.3 % (11.5-14.5); WHITE BLOOD COUNT 7.1 X10'3 (4.5-11.0)
--- NOTE | 2018-09-29 06:35 | NUR ---
Problems reprioritized. Patient report given, questions answered & plan of care reviewed with Zulma RUSH.
--- NOTE | 2018-09-29 06:36 | NUR ---
Patient in room GLYNN 344. I have received report from VICTOR MANUEL Jhaveri and had the opportunity to ask questions and assume patient care.
[2018-09-29 07:00] VITALS: BP 151/73
[2018-09-29] MEDS: oxyCODONE/APAP 10/325mg tablet PO PRN ×3 (07:16→22:02)
--- NOTE | 2018-09-29 07:21 | NUR ---
Patient PIV swollen, red and tender at this time. Upon palpation of IV site, the area is very hard and tight. PIV removed at this time with cannula intact. Patient stated that this is the second IV that has infiltrated since she had been here. Will ask PICC nurse to try and place an extended to hopefully avoid another infiltrated IV.
[2018-09-29] MEDS ORDERED: ASPI-611 PO (10:45)
[2018-09-29] MEDS ORDERED: LEVO75TA PO (10:47)
[2018-09-29 11:00] VITALS: BP 146/74
[2018-09-29] MEDS: mag hydrox/Alum hydrox/simeth 30ml oral suspension PO PRN ×3 (11:57→22:04)
--- NOTE | 2018-09-29 18:15 | NUR ---
Problems reprioritized. Patient report given, questions answered & plan of care reviewed with VICTOR MANUEL Easton.
[2018-09-29 18:30] VITALS: BP 144/41
[2018-09-29] MEDS: metoprolol succinate 25mg (24-HOUR) SR. Tablet PO SCH (20:27)
[2018-09-29] MEDS: ondansetron/PF 4mg/2ml inj IV PRN (20:30)
[2018-09-30] VITALS: BP 157/74
[2018-09-30] MEDS: mag hydrox/Alum hydrox/simeth 30ml oral suspension PO PRN ×2 (03:35→12:08)
[2018-09-30] MEDS: oxyCODONE/APAP 10/325mg tablet PO PRN ×2 (03:40→10:22)
[2018-09-30 04:46] LABS: BASOPHILS % (AUTO) 0.3 % (0-1); EOSINOPHILS # (AUTO) 0.6 X10'3 (0-0.9); HEMATOCRIT 28.1 % (35.0-45.0); HEMOGLOBIN 9.4 g/dl (12.0-16.0); LYMPHOCYTES # (AUTO) 1.7 X10'3 (1.1-4.8); LYMPHOCYTES % (AUTO) 23.9 % (21-51); MEAN CORPUSCULAR HEMOGLOBIN 30.3 PG (27.0-31.0); MEAN CORPUSCULAR HGB CONC 33.6 g/dL (33.0-36.5); MEAN CORPUSCULAR VOLUME 90.4 FL (78-98); MEAN PLATELET VOLUME 7.6 FL (7.4-10.4); MONOCYTES # (AUTO) 0.5 X10'3 (0-0.9); MONOCYTES % (AUTO) 7.4 % (2-12); NEUTROPHILS # (AUTO) 4.3 X10'3 (1.8-7.7); NEUTROPHILS % (AUTO) 60.4 % (42-75); PLATELET COUNT 292 X10'3 (140-440); RED BLOOD COUNT 3.11 X10'6 (4.20-5.60); RED CELL DISTRIBUTION WIDTH 15.4 % (11.5-14.5); WHITE BLOOD COUNT 7.1 X10'3 (4.5-11.0)
[2018-09-30 05:11] LABS: ALBUMIN 2.7 G/DL (3.4-5.0); ANION GAP 6 (8-16); BLOOD UREA NITROGEN 4 MG/DL (7-18); BUN/CREATININE RATIO 3.9 (6.6-38.0); CALCIUM 8.3 MG/DL (8.5-10.1); CHLORIDE 108 MMOL/L (99-107); CREATININE 1.03 MG/DL (0.40-0.90); GLUCOSE 101 MG/DL (70-104); POTASSIUM 3.6 MMOL/L (3.5-5.1); SODIUM 142 MMOL/L (135-145); eGFR 52 ML/MIN
--- NOTE | 2018-09-30 06:34 | NUR ---
Problems reprioritized. Patient report given, questions answered & plan of care reviewed with Zulma. Addendum: 09/30/18 at 0635 by Neftali Bowers RN Amended: Links added.
[2018-09-30 07:00] VITALS: BP 148/61
[2018-09-30] MEDS: ondansetron/PF 4mg/2ml inj IV PRN (08:41)
[2018-09-30 11:00] VITALS: BP 146/54
--- NOTE | 2018-09-30 14:13 | NUR ---
Initial: Pt admit for colostomy reversal. Pt seen at bedside provided with written and verbal education on colostomy reversal with a list of fiber content in foods and RD contact information. Patient's diet has just been advanced to soft with documented 25% PO intake at breakfast not meeting nutrient needs, previously averaging 50% on liquid diet. Pt endorses a good appetite however reports low desire to eat. Likely appetite will increase as pt heals from surgery. Pt denies any food allergies or difficulty chewing/swallowing. LB 09/30. Will continue to follow. Recommendations: 1) Continue with soft diet 2) Monitor need for ONS 3) Encourage PO intake 4) Wt per rx Addendum: 09/30/18 at [address] Amended: Links added.
--- NOTE | 2018-09-30 17:15 | NUR ---
Patient discharge home via family and taken from unit via wheelchair with x1 staff. Patient alert, oriented and in no apparent distress at time of discharge. PIV was removed with cannula intact. Patient was given a prescription for pain medication and she took it with her upon discharge. A copy of prescription was placed in the chart. Patient took all belongings with her including discharge instructions. Patient stated an understanding of instructions and was given time for questions and answers.
== END 2018-09-30 17:15 | disposition home health service (06) | DRG 330 ==
LOC: PAS IN 08:06 → EDSTATUS 10:30 → SUR 3N 17:41
PROVIDERS: ADMIT Surgery; ATTEND Surgery
PROC: 0DQL0ZZ Repair Transverse Colon, Open Approach (ICD-10-PCS; 2018-09-25)
PROC: 0DNL0ZZ Release Transverse Colon, Open Approach (ICD-10-PCS; 2018-09-25)
PROC: 3E0T3BZ Introduction of Anesthetic Agent into Peripheral Nerves and Plexi, Percutaneous Approach (ICD-10-PCS; 2018-09-25)
PROC: 0DN80ZZ Release Small Intestine, Open Approach (ICD-10-PCS; principal; 2018-09-25 10:53)
DX: Z43.3 Encounter for attention to colostomy (principal); K56.7 Ileus, unspecified; N73.6 Female pelvic peritoneal adhesions (postinfective); F41.9 Anxiety disorder, unspecified; I10 Essential (primary) hypertension; E66.9 Obesity, unspecified; Z88.8 Allergy status to other drugs, medicaments and biological substances; Z79.899 Other long term (current) drug therapy; Z90.49 Acquired absence of other specified parts of digestive tract; Z98.1 Arthrodesis status; Z68.33 Body mass index [BMI] 33.0-33.9, adult
CPT/HCPCS: 36415; 76937; 80048; 80053; 81003; 82948; 83036; 84443; 85025; 85610; 85730; 86885; 86900; 86901; 86920; 86945; 87081; 93005; 94668; A4618; A6449; A7000; C1758; C9290; G0378; J0694; J1100; J1170; J1580; J1815; J1885; J2001; J2175; J2250; J2270; J2405; J2704; J2710; J3010; J3480; J3490; J7120

== ENCOUNTER 2018-10-26 09:09 | Inpatient (IN) | payer MEDICARE ==
[~2018-10-26] VITALS: Ht 152.4 cm; Wt 71.6 kg
[~2018-10-26 09:09] MED LIST changes: +ASPI-611 PO; -ASPI81TA52 PO; -ATOR10TA70 PO; -BUSP10TA3 PO; -CYCL-1 PO; -HYDR-4383 PO; -METO50TA7 PO; -OMEP20TA5 PO
[2018-10-26] MEDS ORDERED: diatr meglu/diatrizoate 30ml oral sol.-(3 dose) bottle PO SCH (09:35)
[2018-10-26] MEDS ORDERED: potassium CL 10mEq/100ml bag 100 ML IV PRN ×2 (10:00)
[2018-10-26] MEDS ORDERED: acetaminophen 650mg rectal suppository RC PRN (10:00)
[2018-10-26] MEDS ORDERED: morphine 2 MG/ML inj. syringe IV PRN (10:00)
[2018-10-26] MEDS ORDERED: magnesium hydroxide 30ml (MOM) UD suspension PO PRN (10:00)
[2018-10-26] MEDS ORDERED: metoclopramide 5 mg/ml inj IV PRN (10:00)
[2018-10-26] MEDS ORDERED: magnesium Cl slow-release 64mg tablet PO PRN (10:00)
[2018-10-26] MEDS ORDERED: HYDROcodone/acetaminophen 10/325mg tab PO PRN (10:00)
[2018-10-26] MEDS ORDERED: potassium Cl 20 mEq SR tablet PO PRN ×2 (10:00)
[2018-10-26] MEDS ORDERED: magnesium 4gm in 100ml NS 100 ML IV PRN (10:00)
[2018-10-26] MEDS ORDERED: mag hydrox/Alum hydrox/simeth 30ml oral suspension PO PRN (10:00)
[2018-10-26] MEDS ORDERED: HYDROcodone/acetaminophen 5mg/325mg tablet PO PRN (10:00)
[2018-10-26] MEDS: K and/or MAG REPLACEMENT MC SCH (10:00)
[2018-10-26] MEDS ORDERED: magnesium 2GM in 50ml NS 50 ML IV PRN (10:00)
[2018-10-26] MEDS ORDERED: acetaminophen 325mg tablet PO PRN ×2 (10:00)
[2018-10-26 10:03] LABS: BASOPHILS % (AUTO) 0.6 % (0-1); EOSINOPHILS % (AUTO) 0.4 % (0-6); HEMATOCRIT 31.1 % (35.0-45.0); HEMOGLOBIN 10.4 g/dl (12.0-16.0); LYMPHOCYTES # (AUTO) 1.2 X10'3 (1.1-4.8); LYMPHOCYTES % (AUTO) 19.8 % (21-51); MEAN CORPUSCULAR HEMOGLOBIN 29.5 PG (27.0-31.0); MEAN CORPUSCULAR HGB CONC 33.3 g/dL (33.0-36.5); MEAN CORPUSCULAR VOLUME 88.7 FL (78-98); MEAN PLATELET VOLUME 7.2 FL (7.4-10.4); MONOCYTES # (AUTO) 0.6 X10'3 (0-0.9); MONOCYTES % (AUTO) 9.3 % (2-12); NEUTROPHILS # (AUTO) 4.2 X10'3 (1.8-7.7); NEUTROPHILS % (AUTO) 69.9 % (42-75); PLATELET COUNT 373 X10'3 (140-440); RED BLOOD COUNT 3.51 X10'6 (4.20-5.60); RED CELL DISTRIBUTION WIDTH 15.3 % (11.5-14.5)
[2018-10-26] MEDS ORDERED: pramoxine 1% foam spray 15gm TP PRN (10:05)
[2018-10-26 10:18] LABS: ALANINE AMINOTRANSFERASE 16 U/L (12-78); ALBUMIN 3.5 G/DL (3.4-5.0); ALKALINE PHOSPHATASE 55 IU/L (46-116); ANION GAP 9 (8-16); ASPARTATE AMINO TRANSFERASE 10 U/L (10-37); BILIRUBIN,TOTAL 0.3 MG/DL (0.1-1.0); BLOOD UREA NITROGEN 22 MG/DL (7-18); BUN/CREATININE RATIO 22.7 (6.6-38.0); CALCIUM 9.3 MG/DL (8.5-10.1); CHLORIDE 108 MMOL/L (99-107); CREATININE 0.97 MG/DL (0.40-0.90); GLUCOSE 122 MG/DL (70-104); POTASSIUM 3.8 MMOL/L (3.5-5.1); SODIUM 142 MMOL/L (135-145); TOTAL CARBON DIOXIDE 25.2 MMOL/L (24-32); TOTAL PROTEIN 7.1 G/DL (6.4-8.2); eGFR 56 ML/MIN
[2018-10-26] MEDS: dextrose 5%-normal saline 1,000 ML IV SCH (10:49)
--- NOTE | 2018-10-26 10:57 | NUR ---
DR OG IN ROOM TO EVAL PT FOR ADMIT. VERBAL ORDER TO PLACE SILVA CATHETER PER PROTOCOL.
[2018-10-26] MEDS ORDERED: oxyCODONE/APAP 10/325mg tablet PO PRN (11:00)
[2018-10-26] MEDS: morphine 2 MG/ML inj. syringe IV PRN (11:09)
--- NOTE | 2018-10-26 11:44 | NUR ---
SILVA CATH #16 FR INSERTED AND DRAINING WELL. URINE SPEC OBTAINED AND SENT TO LAB.
[2018-10-26 11:55] LABS: CLARITY,URINE CLEAR (Clear); COLOR,URINE YELLOW (Yellow); GLUCOSE, URINE NEGATIVE (Neg); KETONES,URINE NEGATIVE (Neg); LEUKOCYTE ESTERASE ,URINE NEGATIVE (Neg); NITRITES, URINE NEGATIVE (Neg); OCCULT BLOOD,URINE NEGATIVE (Neg); PROTEIN,URINE NEGATIVE (Neg); UROBILINOGEN,URINE 0.2 E.U/dL (0.2-1.0)
[2018-10-26] MEDS ORDERED: ATOR10TA70 PO (12:03)
[2018-10-26] MEDS ORDERED: MELO-100 PO (12:03)
[2018-10-26] MEDS ORDERED: METO50TA7 PO (12:03)
[2018-10-26] MEDS ORDERED: FAMO40TA58 PO (12:03)
[2018-10-26] MEDS ORDERED: MONT10TA21 PO (12:03)
[2018-10-26] MEDS ORDERED: BUSP5TAB3 PO (12:03)
[2018-10-26 12:04] LABS: UA COLLECTION TYPE FOLEY CATH
--- NOTE | 2018-10-26 12:10 | NUR ---
Report received from ED RNSandy.
--- NOTE | 2018-10-26 12:25 | NUR ---
PT STATES THAT HER PAIN LEVEL IS MUCH BETTER AFTER GETTING THE PROTOFOAM TO THE VAGINAL AREA. 03/30
--- NOTE | 2018-10-26 12:50 | NUR ---
Pt arrived to room 340B from ED
[2018-10-26 13:00] VITALS: BP 171/86
[2018-10-26] MEDS ORDERED: busPIRone 5mg tablet PO PRN (13:30)
[2018-10-26] MEDS ORDERED: famotidine 20mg tablet PO PRN (13:30)
[2018-10-26] MEDS: metoprolol succinate 25mg (24-HOUR) SR. Tablet PO SCH (13:54)
[2018-10-26] MEDS: diatr meglu/diatrizoate 30ml oral sol.-(3 dose) bottle PO SCH ×2 (13:54→15:50)
[2018-10-26] MEDS ORDERED: iohexol 300mg/ml 100ml inj. ONE (15:46)
--- NOTE | 2018-10-26 16:11 | NUR ---
Off the unit Addendum: 10/26/18 at 1611 by Pratima Drake RN Amended: Links added.
[2018-10-26] MEDS ORDERED: PEG 3350/Na sulf,bicarb,Cl/KCl oral sol 4 liter bottle PO ONE (18:00)
--- NOTE | 2018-10-26 18:30 | NUR ---
Patient in room GLYNN 340. I have received report from JESÚS and had the opportunity to ask questions and assume patient care. ASSUMED CARE OF PT WITH RN STUDENT CHRISTIANO Chaudhari
[2018-10-26 20:00] VITALS: BP 157/58
[2018-10-26] MEDS ORDERED: amLODIPine 5mg tablet PO ONE (20:55)
[2018-10-26] MEDS ORDERED: fluconazole 100mg tablet PO ONE (20:55)
[2018-10-26] MEDS: heparin, porcine 5000 units/ml vial SQ SCH (21:34)
[2018-10-26] MEDS: oxyCODONE/APAP 10/325mg tablet PO PRN (21:34)
[2018-10-27] VITALS: BP 151/64
[2018-10-27] MEDS: ondansetron/PF 4mg/2ml inj IV PRN ×3 (00:19→14:58)
[2018-10-27] MEDS: dextrose 5%-normal saline 1,000 ML IV SCH ×4 (00:21→23:47)
[2018-10-27] MEDS: metroNIDAZOLE-Flagyl 500mg/NS 100 ML IV SCH ×4 (00:22→23:46)
[2018-10-27 04:49] LABS: BASOPHILS % (AUTO) 0.2 % (0-1); EOSINOPHILS % (AUTO) 0.4 % (0-6); HEMATOCRIT 31.4 % (35.0-45.0); HEMOGLOBIN 10.3 g/dl (12.0-16.0); LYMPHOCYTES # (AUTO) 1.3 X10'3 (1.1-4.8); LYMPHOCYTES % (AUTO) 18.5 % (21-51); MEAN CORPUSCULAR HEMOGLOBIN 29.4 PG (27.0-31.0); MEAN CORPUSCULAR HGB CONC 32.9 g/dL (33.0-36.5); MEAN CORPUSCULAR VOLUME 89.5 FL (78-98); MEAN PLATELET VOLUME 7.3 FL (7.4-10.4); MONOCYTES # (AUTO) 0.5 X10'3 (0-0.9); MONOCYTES % (AUTO) 7.4 % (2-12); NEUTROPHILS % (AUTO) 73.5 % (42-75); PLATELET COUNT 375 X10'3 (140-440); RED BLOOD COUNT 3.51 X10'6 (4.20-5.60); RED CELL DISTRIBUTION WIDTH 15.4 % (11.5-14.5); WHITE BLOOD COUNT 6.8 X10'3 (4.5-11.0)
[2018-10-27 04:59] LABS: ALANINE AMINOTRANSFERASE 14 U/L (12-78); ALBUMIN 3.4 G/DL (3.4-5.0); ALKALINE PHOSPHATASE 52 IU/L (46-116); ANION GAP 7 (8-16); ASPARTATE AMINO TRANSFERASE 9 U/L (10-37); BILIRUBIN,TOTAL 0.2 MG/DL (0.1-1.0); BLOOD UREA NITROGEN 12 MG/DL (7-18); BUN/CREATININE RATIO 14.3 (6.6-38.0); CALCIUM 9.1 MG/DL (8.5-10.1); CHLORIDE 108 MMOL/L (99-107); CREATININE 0.84 MG/DL (0.40-0.90); GLUCOSE 134 MG/DL (70-104); MAGNESIUM 1.8 MG/DL (1.5-2.4); PHOSPHORUS 2.9 MG/DL (2.3-4.5); POTASSIUM 3.8 MMOL/L (3.5-5.1); SODIUM 141 MMOL/L (135-145); TOTAL CARBON DIOXIDE 26.4 MMOL/L (24-32); TOTAL PROTEIN 6.9 G/DL (6.4-8.2); eGFR 66 ML/MIN
--- NOTE | 2018-10-27 06:10 | NUR ---
Patient in room GLYNN 340. I have received report from VICTOR MANUEL Saxena and had the opportunity to ask questions and assume patient care.
--- NOTE | 2018-10-27 06:26 | NUR ---
Problems reprioritized. Patient report given, questions answered & plan of care reviewed with JESÚS.
[2018-10-27 06:30] VITALS: BP 128/66
[2018-10-27] MEDS: K and/or MAG REPLACEMENT MC SCH (06:40)
[2018-10-27] MEDS: diatr meglu/diatrizoate 30ml oral sol.-(3 dose) bottle PO SCH (06:41)
[2018-10-27] MEDS: heparin, porcine 5000 units/ml vial SQ SCH ×2 (06:41→20:00)
[2018-10-27] MEDS: atorvastatin 10mg tablet PO SCH (06:41)
[2018-10-27] MEDS ORDERED: levoTHYROXINE 75mcg tablet PO SCH (07:00)
[2018-10-27] MEDS ORDERED: PEG 3350/Na sulf,bicarb,Cl/KCl oral sol 4 liter bottle PO ONE (08:00)
[2018-10-27] MEDS: montelukast 10mg tablet PO SCH (08:43)
[2018-10-27] MEDS: amLODIPine 5mg tablet PO SCH (08:44)
[2018-10-27] MEDS: metoprolol succinate 25mg (24-HOUR) SR. Tablet PO SCH (08:44)
[2018-10-27] MEDS: levoTHYROXINE 75mcg tablet PO SCH (08:44)
[2018-10-27] MEDS: morphine 2 MG/ML inj. syringe IV PRN (10:07)
[2018-10-27 11:30] VITALS: BP 105/55
[2018-10-27] MEDS: oxyCODONE/APAP 10/325mg tablet PO PRN ×2 (11:47→16:25)
--- NOTE | 2018-10-27 18:45 | NUR ---
Problems reprioritized. Patient report given, questions answered & plan of care reviewed with VICTOR MANUEL Jules.
[2018-10-27 19:00] VITALS: BP 120/53
--- NOTE | 2018-10-27 19:14 | NUR ---
Patient in room GLYNN 340. I have received report from VICTOR MANUEL Antonio and had the opportunity to ask questions and assume patient care.
[2018-10-27] MEDS ORDERED: ceFOXitin 2 GM ADDvantage bag 100 ML IV ONE (20:55)
[2018-10-27] MEDS ORDERED: ALPRAZolam 0.25mg tablet PO PRN (21:00)
[2018-10-28] VITALS (22 sets, daily range): BP systolic 92–146; BP diastolic 48–80
[2018-10-28 05:14] LABS: BASOPHILS % (AUTO) 0.2 % (0-1); EOSINOPHILS % (AUTO) 0.8 % (0-6); HEMATOCRIT 28.4 % (35.0-45.0); HEMOGLOBIN 9.2 g/dl (12.0-16.0); LYMPHOCYTES # (AUTO) 1.3 X10'3 (1.1-4.8); LYMPHOCYTES % (AUTO) 19.7 % (21-51); MEAN CORPUSCULAR HGB CONC 32.3 g/dL (33.0-36.5); MEAN CORPUSCULAR VOLUME 89.9 FL (78-98); MEAN PLATELET VOLUME 7.5 FL (7.4-10.4); MONOCYTES # (AUTO) 0.6 X10'3 (0-0.9); NEUTROPHILS # (AUTO) 4.5 X10'3 (1.8-7.7); NEUTROPHILS % (AUTO) 70.3 % (42-75); PLATELET COUNT 327 X10'3 (140-440); RED BLOOD COUNT 3.16 X10'6 (4.20-5.60); RED CELL DISTRIBUTION WIDTH 15.7 % (11.5-14.5); WHITE BLOOD COUNT 6.3 X10'3 (4.5-11.0)
[2018-10-28 05:25] LABS: ALANINE AMINOTRANSFERASE 14 U/L (12-78); ALBUMIN/GLOBULIN RATIO 0.9 (1.1-1.5); ALKALINE PHOSPHATASE 44 IU/L (46-116); ANION GAP 8 (8-16); ASPARTATE AMINO TRANSFERASE 10 U/L (10-37); BILIRUBIN,TOTAL 0.2 MG/DL (0.1-1.0); BLOOD UREA NITROGEN 11 MG/DL (7-18); BUN/CREATININE RATIO 12.4 (6.6-38.0); CALCIUM 8.3 MG/DL (8.5-10.1); CHLORIDE 110 MMOL/L (99-107); CREATININE 0.89 MG/DL (0.40-0.90); GLUCOSE 114 MG/DL (70-104); MAGNESIUM 1.8 MG/DL (1.5-2.4); PHOSPHORUS 2.6 MG/DL (2.3-4.5); POTASSIUM 3.9 MMOL/L (3.5-5.1); SODIUM 145 MMOL/L (135-145); TOTAL CARBON DIOXIDE 26.9 MMOL/L (24-32); TOTAL PROTEIN 6.3 G/DL (6.4-8.2); eGFR 61 ML/MIN
--- NOTE | 2018-10-28 06:30 | NUR ---
Patient in room GLYNN 340. I have received report from VICTOR MANUEL Nguyen and had the opportunity to ask questions and assume patient care.
--- NOTE | 2018-10-28 06:41 | NUR ---
Problems reprioritized. Patient report given, questions answered & plan of care reviewed with VICTOR MANUEL Ortiz.
[2018-10-28] MEDS: K and/or MAG REPLACEMENT MC SCH (06:52)
[2018-10-28] MEDS: montelukast 10mg tablet PO SCH ×2 (08:00→08:34)
[2018-10-28] MEDS: heparin, porcine 5000 units/ml vial SQ SCH ×2 (08:00→20:00)
[2018-10-28] MEDS: metoprolol succinate 25mg (24-HOUR) SR. Tablet PO SCH (08:34)
[2018-10-28] MEDS: atorvastatin 10mg tablet PO SCH (08:34)
[2018-10-28] MEDS: metroNIDAZOLE-Flagyl 500mg/NS 100 ML IV SCH ×2 (08:34→16:00)
[2018-10-28] MEDS: amLODIPine 5mg tablet PO SCH (08:34)
[2018-10-28] MEDS: levoTHYROXINE 75mcg tablet PO SCH (08:44)
[2018-10-28 12:26] LABS: PARTIAL THROMBOPLASTIN TIME 28 SECONDS (22-32)
[2018-10-28] MEDS: dextrose 5%-normal saline 1,000 ML IV SCH ×2 (14:31→21:28)
[2018-10-28] MEDS ORDERED: MIDAZolam 5mg/ml 2ml vial ONE (15:18)
[2018-10-28] MEDS ORDERED: fentaNYL /PF 50mcg/ml 5ml ampule ONE (15:18)
[2018-10-28] MEDS ORDERED: dexamethasone sod phosphate 4mg/ml inj. ONE (15:19)
[2018-10-28] MEDS ORDERED: rocuronium 10mg/ml inj IV ONE ×2 (15:19→16:02)
[2018-10-28] MEDS ORDERED: ondansetron/PF 4mg/2ml inj ONE (15:19)
[2018-10-28] MEDS ORDERED: ringers solution, lacted 1,000 ML IV SCH (15:32)
--- NOTE | 2018-10-28 15:33 | NUR ---
pt transported to OR. 1600 ABX's sent with pt.
[2018-10-28] MEDS ORDERED: morphine 4 MG/ML inj SYRINge IV PRN (15:35)
[2018-10-28] MEDS ORDERED: fentaNYL/PF 50MCG/1 ML 2ML syringe IV PRN ×2 (15:35)
[2018-10-28] MEDS ORDERED: hydrALAZINE 20mg/ml inj. IV PRN (15:35)
[2018-10-28] MEDS ORDERED: ondansetron/PF 4mg/2ml inj IV PRN (15:35)
[2018-10-28] MEDS ORDERED: labetalol 20mg/4ml (5mg/ml) syringe IV PRN (15:35)
[2018-10-28] MEDS ORDERED: ceFOXitin 2 GM ADDvantage bag 100 ML IV ONE (16:00)
[2018-10-28] MEDS ORDERED: glycopyrrolate 0.2mg/ml inj ONE ×3 (16:02→19:44)
[2018-10-28] MEDS ORDERED: neostigmine methylsulfate 1 MG/ML 10ml vial ONE (16:02)
[2018-10-28] MEDS ORDERED: sevoflurane 250ml liquid IH ONE (16:02)
[2018-10-28] MEDS ORDERED: BUPIVACAINE liposomal/PF 13.3 MG/ML vial IM ONE (16:04)
[2018-10-28] MEDS ORDERED: BUPIVAcaine/PF 2.5mg/ml (0.25%) 10ml vial ONE (16:04)
[2018-10-28] MEDS ORDERED: albumin (Human) 5% 250ml 250 ML IV ONE ×2 (16:32→16:50)
[2018-10-28] MEDS ORDERED: labetalol 20mg/4ml (5mg/ml) syringe IV ONE (16:53)
--- NOTE | 2018-10-28 18:00 | NUR ---
Problems reprioritized. Patient report given, questions answered & plan of care reviewed with VICTOR MANUEL Nguyen.
[2018-10-28] MEDS ORDERED: gentamicin 40 MG/1 ML inj ONE (18:10)
[2018-10-28] MEDS ORDERED: naloxone 0.4 mg/ml inj ONE (19:22)
[2018-10-28] MEDS ORDERED: naloxone 0.4 mg/ml inj IV PRN (19:25)
[2018-10-28] MEDS ORDERED: CADD PCA waste documentation MC PRN (19:25)
[2018-10-28] MEDS ORDERED: HYDROmorphone/NS 1 mg/ml CADD 50 ML IV SCH (19:25)
--- NOTE | 2018-10-28 19:35 | NUR ---
Received from OR via , accompanied by Anesthesiologist DR SPENCER and report given by Anesthesiolgist. PT IS SOMNOLENT AND NOT RESPONDING TO VOICE, LIMITED BREATHING, DR SPENCER AT BS MANAGING AIRWAY, NARCAN AND ROMAZACON GIVEN PER DR GALVAN'S INSTRUCTIONS,HEAD TILT, CHIN LIFT, PIV RIGHT AC 20G PATENT WITH LR 100ML/HR, SILVA TO GRAVITY, CLEAR YELLOW, ABD HAS PACKING WITH SUMAN AND TAPE, COLOSTOMY WITH SANQ DRAINAGE, MEKHI DRAIN WITH 25ML/S SANQ DRAINAGE, SCD'S.
--- NOTE | 2018-10-28 19:46 | NUR ---
DR SPENCER AT BS. PT CONTINUES TO DESAT. RT NOTIFIED TO BRING BIPAP TO RECOVERY.
--- NOTE | 2018-10-28 20:00 | NUR ---
RT ARRIVED WITH BIPAP. SET PT AT TIDAL VOLUME 500, RATE 20, FIO2 50%. SATS 100% ON BIPAP.
[2018-10-28] MEDS: morphine 4 MG/ML inj SYRINge IV PRN ×2 (20:13→20:32)
--- NOTE | 2018-10-28 20:29 | NUR ---
LUCRETIA HEIN INITIATED BUT NOT STARTED AT THIS TIME. Addendum: 10/28/18 at 2030 by Layla Burgos RN Amended: Links added.
--- NOTE | 2018-10-28 20:34 | NUR ---
STAT ABG ORDERED. FIO2 REDUCED TO 40%. DILAUDID CADD SET UP. UNABLE TO EDUCATE PT IN USE AT THIS TIME.
[2018-10-28 20:41] LABS: ABG BASE EXCESS -4.1 mmol/L (-2.0-3.0); ABG HCO3 22.2 mmol/L (22.0-26.0); ABG OXYGEN SATURATION 96.7 % (95-98); ABG PCO2 (T) 43.9 mmHg (35.0-45.0); ABG PH (T) 7.317 (7.350-7.450); ABG PO2 (T) 92.9 mmHg (83-108); FCOHb 0.2 % (0.5-1.5); FMetHb 0.3 % (0.3-1.12); FO2Hb 96.2 % (94-100); MINUTE VOLUME 7 L/min; TOTAL HEMOGLOBIN 10.6 G/dl (12.0-16.0)
--- NOTE | 2018-10-28 21:02 | NUR ---
Patient being transfered to ICU. Removed from list. Patient not visualized; never returned to surgical floor from surgery.
--- NOTE | 2018-10-28 21:05 | NUR ---
Report called to receiving nurse. Transferred via BED Belongings . Special Issues communicated to receiving nurse TASHI RUSH. PT IS SLEEPY BUT WAKES EASILY, RESTLESS AND WANTING TO REMOVE BIPAP MASK, REASSURING PATIENT, SILVA TO GRAVITY, SCD'S, DRESSING CD WITH SHADOW OF DRAINAGE NOTED, MEKHI SANQ DRAINAGE, COLOSTOMY HAS SCANT AMOUNT OF SANQ DRAINAGE, NG TUBE TO LIS, DILAUDID CADD PLACED ON HOLD AND DISCONNECTED FROM PATIENT, PIV RIGHT FA PATENT,PT MEETS DISCHARGE CRITERIA, DR BAPTISTE AND DR SPENCER UPDATED REGARDING PT STATUS.
--- NOTE | 2018-10-28 21:15 | NUR ---
Patient arrived to floor and is in room ICU 2039. I have received report from Shikha RUSH and had the opportunity to ask questions and assume patient care. Patient sleepy upon arrival, but wakes up intermittently complaining of severe pain to abdomen. Patient placed on BiPAP with FIO2 at 35% per MD orders, saturating at 100% on current settings. Surgical incision CDI with minimal dried serosanguineous drainage to bottom of dressing. MEKHI drain present, with minimal sanguineous drainage in bulb, and colostomy present with red stoma and minimal sanguineous drainage noted in bag. ABD distended and tender, no bowel sounds auscultated at this time. NG tube hooked up to LIS per MD orders. Pain medication administered per MD orders. Will continue to monitor patient closely.
[2018-10-28] MEDS: HYDROmorphone 1 mg/ml syringe IV PRN (21:18)
[2018-10-29] VITALS (24 sets, daily range): BP systolic 109–156; BP diastolic 35–68
[2018-10-29] MEDS: morphine 2 MG/ML inj. syringe IV PRN ×3 (00:21→10:25)
[2018-10-29] MEDS: metroNIDAZOLE-Flagyl 500mg/NS 100 ML IV SCH ×2 (00:23→07:37)
[2018-10-29] MEDS: piperacillin/tazo 3.375gm/50ml 50 ML IV SCH ×4 (01:30→23:49)
[2018-10-29 04:48] LABS: BASOPHILS % (AUTO) 0 % (0-1); EOSINOPHILS % (AUTO) 0 % (0-6); HEMATOCRIT 29.5 % (35.0-45.0); HEMOGLOBIN 9.7 g/dl (12.0-16.0); LYMPHOCYTES # (AUTO) 0.5 X10'3 (1.1-4.8); LYMPHOCYTES % (AUTO) 3.3 % (21-51); MEAN CORPUSCULAR HEMOGLOBIN 29.6 PG (27.0-31.0); MEAN CORPUSCULAR HGB CONC 32.8 g/dL (33.0-36.5); MEAN CORPUSCULAR VOLUME 90.4 FL (78-98); MEAN PLATELET VOLUME 7.3 FL (7.4-10.4); MONOCYTES # (AUTO) 0.7 X10'3 (0-0.9); MONOCYTES % (AUTO) 4.4 % (2-12); NEUTROPHILS # (AUTO) 14.2 X10'3 (1.8-7.7); NEUTROPHILS % (AUTO) 92.3 % (42-75); PLATELET COUNT 352 X10'3 (140-440); RED BLOOD COUNT 3.26 X10'6 (4.20-5.60); RED CELL DISTRIBUTION WIDTH 15.3 % (11.5-14.5); WHITE BLOOD COUNT 15.4 X10'3 (4.5-11.0)
[2018-10-29 05:01] LABS: ALANINE AMINOTRANSFERASE 17 U/L (12-78); ALBUMIN 3.4 G/DL (3.4-5.0); ALBUMIN/GLOBULIN RATIO 1.2 (1.1-1.5); ALKALINE PHOSPHATASE 38 IU/L (46-116); ANION GAP 7 (8-16); ASPARTATE AMINO TRANSFERASE 15 U/L (10-37); BILIRUBIN,TOTAL 0.3 MG/DL (0.1-1.0); BLOOD UREA NITROGEN 8 MG/DL (7-18); BUN/CREATININE RATIO 8.5 (6.6-38.0); CALCIUM 8.2 MG/DL (8.5-10.1); CHLORIDE 110 MMOL/L (99-107); CREATININE 0.94 MG/DL (0.40-0.90); GLUCOSE 128 MG/DL (70-104); MAGNESIUM 1.5 MG/DL (1.5-2.4); PHOSPHORUS 2.4 MG/DL (2.3-4.5); POTASSIUM 3.8 MMOL/L (3.5-5.1); SODIUM 142 MMOL/L (135-145); TOTAL CARBON DIOXIDE 24.9 MMOL/L (24-32); TOTAL PROTEIN 6.3 G/DL (6.4-8.2); eGFR 58 ML/MIN
--- NOTE | 2018-10-29 06:25 | NUR ---
Problems reprioritized. Patient report given, questions answered & plan of care reviewed with Garima RUSH.
--- NOTE | 2018-10-29 06:41 | NUR ---
Patient in room ICU 2039. I have received report from VICTOR MANUEL Hayden and had the opportunity to ask questions and assume patient care.
[2018-10-29] MEDS: heparin, porcine 5000 units/ml vial SQ SCH ×2 (07:37→19:00)
[2018-10-29] MEDS: amLODIPine 5mg tablet PO SCH (08:00)
[2018-10-29] MEDS: atorvastatin 10mg tablet PO SCH (08:00)
[2018-10-29] MEDS: metoprolol succinate 25mg (24-HOUR) SR. Tablet PO SCH (08:00)
[2018-10-29] MEDS: levoTHYROXINE 75mcg tablet PO SCH (08:00)
[2018-10-29] MEDS: montelukast 10mg tablet PO SCH (08:00)
[2018-10-29] MEDS: K and/or MAG REPLACEMENT MC SCH (08:00)
[2018-10-29] MEDS: dextrose 5%-normal saline 1,000 ML IV SCH ×3 (08:05→20:45)
[2018-10-29 09:20] LABS: HEMATOCRIT 27.4 % (35.0-45.0); MEAN CORPUSCULAR HEMOGLOBIN 29.5 PG (27.0-31.0); MEAN CORPUSCULAR HGB CONC 32.8 g/dL (33.0-36.5); MEAN PLATELET VOLUME 7.1 FL (7.4-10.4); PLATELET COUNT 329 X10'3 (140-440); RED BLOOD COUNT 3.04 X10'6 (4.20-5.60); RED CELL DISTRIBUTION WIDTH 15.7 % (11.5-14.5); WHITE BLOOD COUNT 14.5 X10'3 (4.5-11.0)
[2018-10-29] MEDS: ondansetron/PF 4mg/2ml inj IV PRN (09:53)
[2018-10-29] MEDS ORDERED: LORazepam 2 mg/ml vial IV PRN (10:40)
--- NOTE | 2018-10-29 11:20 | NUR ---
Attempted to see pt to speak about new ostomy. Pt was still coming off of sedation/confused. Did get a "Yes" when I asked if pt had ostomy previously, but teaching cannot be performed at this time. Will attempt to follow up at a later time.
--- NOTE | 2018-10-29 14:08 | NUR ---
Dr. Barahona came by and spoke with patient, he changed her morphine order, he also ordered to have the NG tube D/C'ed and to have a physical therapy eval. No other new orders
[2018-10-29] MEDS: morphine 4 MG/ML inj SYRINge IV PRN ×3 (14:54→23:50)
--- NOTE | 2018-10-29 18:19 | NUR ---
Problems reprioritized. Patient report given, questions answered & plan of care reviewed with VICTOR MANUEL Hayden.
--- NOTE | 2018-10-29 18:24 | NUR ---
Patient in room ICU 2039. I have received report from Garima RUSH and had the opportunity to ask questions and assume patient care. Patient resting in bed, complains of pain to surgical site, but is otherwise in no apparent distress. Patient Saturating at 93% on room air, HR in mid 70s in sinus rhythm, BP 114/47 via automatic cuff. Will continue to monitor patient.
[2018-10-29] MEDS: lactobacillus rhamnosus 10,000 MMU CELLS/CAPSULE PO SCH (20:00)
[2018-10-30] VITALS (14 sets, daily range): BP systolic 102–127; BP diastolic 42–55
[2018-10-30] MEDS: morphine 4 MG/ML inj SYRINge IV PRN ×2 (04:04→08:13)
[2018-10-30 05:05] LABS: BASOPHILS % (AUTO) 0.2 % (0-1); EOSINOPHILS % (AUTO) 0.4 % (0-6); HEMATOCRIT 26.1 % (35.0-45.0); HEMOGLOBIN 8.5 g/dl (12.0-16.0); LYMPHOCYTES # (AUTO) 1.5 X10'3 (1.1-4.8); LYMPHOCYTES % (AUTO) 13.8 % (21-51); MEAN CORPUSCULAR HEMOGLOBIN 29.3 PG (27.0-31.0); MEAN CORPUSCULAR HGB CONC 32.7 g/dL (33.0-36.5); MEAN CORPUSCULAR VOLUME 89.7 FL (78-98); MEAN PLATELET VOLUME 7.5 FL (7.4-10.4); MONOCYTES # (AUTO) 0.7 X10'3 (0-0.9); MONOCYTES % (AUTO) 6.5 % (2-12); NEUTROPHILS # (AUTO) 8.7 X10'3 (1.8-7.7); NEUTROPHILS % (AUTO) 79.1 % (42-75); PLATELET COUNT 303 X10'3 (140-440); RED BLOOD COUNT 2.91 X10'6 (4.20-5.60)
[2018-10-30 05:18] LABS: ALANINE AMINOTRANSFERASE 12 U/L (12-78); ALBUMIN 2.6 G/DL (3.4-5.0); ALBUMIN/GLOBULIN RATIO 0.9 (1.1-1.5); ALKALINE PHOSPHATASE 36 IU/L (46-116); ANION GAP 7 (8-16); ASPARTATE AMINO TRANSFERASE 9 U/L (10-37); BILIRUBIN,TOTAL 0.4 MG/DL (0.1-1.0); BLOOD UREA NITROGEN 11 MG/DL (7-18); BUN/CREATININE RATIO 11.2 (6.6-38.0); CALCIUM 8.2 MG/DL (8.5-10.1); CHLORIDE 110 MMOL/L (99-107); CREATININE 0.98 MG/DL (0.40-0.90); GLUCOSE 116 MG/DL (70-104); MAGNESIUM 1.6 MG/DL (1.5-2.4); PHOSPHORUS 2.5 MG/DL (2.3-4.5); POTASSIUM 3.7 MMOL/L (3.5-5.1); SODIUM 143 MMOL/L (135-145); TOTAL CARBON DIOXIDE 26.3 MMOL/L (24-32); TOTAL PROTEIN 5.6 G/DL (6.4-8.2); eGFR 55 ML/MIN
--- NOTE | 2018-10-30 06:10 | NUR ---
Problems reprioritized. Patient report given, questions answered & plan of care reviewed with Garima RUSH.
--- NOTE | 2018-10-30 06:23 | NUR ---
Patient in room ICU 2039. I have received report from VICTOR MANUEL Hayden and had the opportunity to ask questions and assume patient care.
[2018-10-30] MEDS: piperacillin/tazo 3.375gm/50ml 50 ML IV SCH ×2 (07:33→16:36)
[2018-10-30] MEDS: heparin, porcine 5000 units/ml vial SQ SCH ×2 (07:34→19:36)
[2018-10-30] MEDS: lactobacillus rhamnosus 10,000 MMU CELLS/CAPSULE PO SCH ×2 (08:00→19:32)
[2018-10-30] MEDS: K and/or MAG REPLACEMENT MC SCH (08:00)
[2018-10-30] MEDS: amLODIPine 5mg tablet PO SCH (08:00)
[2018-10-30] MEDS: metoprolol succinate 25mg (24-HOUR) SR. Tablet PO SCH (08:00)
[2018-10-30] MEDS: levoTHYROXINE 75mcg tablet PO SCH (08:00)
[2018-10-30] MEDS: atorvastatin 10mg tablet PO SCH (08:00)
[2018-10-30] MEDS: montelukast 10mg tablet PO SCH (08:00)
--- NOTE | 2018-10-30 10:30 | NUR ---
Received report from VICTOR MANUEL Painting in ICU. all questions answered patient received to room 354A. Patient reports tolerable pain at this time, vital signs stable, will continue to monitor.
--- NOTE | 2018-10-30 10:30 | NUR ---
Report given to VICTOR MANUEL Vides on surgical unit. Pt transferred by bed to [facility]. All belongings sent with pt. Pt alert, oriented, and stable for transfer.
[2018-10-30] MEDS: HYDROmorphone 1 mg/ml syringe IV PRN ×2 (12:41→16:49)
--- NOTE | 2018-10-30 12:42 | NUR ---
Saw pt earlier today in the ICU. Pt awake and answering questions appropriately. She verbalized that she felt comfortable changing her own ostomy as she had an ostomy previously. When inquiring about home materials, pt stated she still had materials at home. Will follow up with pt again, if able, to double check if any further instruction or materials might be needed prior to discharge.
[2018-10-30] MEDS: dextrose 5%-normal saline 1,000 ML IV SCH (16:36)
--- NOTE | 2018-10-30 18:16 | NUR ---
Problems reprioritized. Patient report given, questions answered & plan of care reviewed with VICTOR MANUEL Arroyo.
[2018-10-31] MEDS: dextrose 5%-normal saline 1,000 ML IV SCH ×3 (00:05→16:29)
[2018-10-31 00:26] VITALS: BP 122/57
[2018-10-31] MEDS: piperacillin/tazo 3.375gm/50ml 50 ML IV SCH ×3 (01:02→16:30)
[2018-10-31] MEDS: morphine 4 MG/ML inj SYRINge IV PRN ×2 (05:11→09:17)
[2018-10-31 06:06] LABS: BASOPHILS % (AUTO) 0.3 % (0-1); EOSINOPHILS # (AUTO) 0.2 X10'3 (0-0.9); HEMATOCRIT 24.5 % (35.0-45.0); HEMOGLOBIN 8.1 g/dl (12.0-16.0); LYMPHOCYTES # (AUTO) 1.2 X10'3 (1.1-4.8); LYMPHOCYTES % (AUTO) 16.3 % (21-51); MEAN CORPUSCULAR HEMOGLOBIN 29.7 PG (27.0-31.0); MEAN CORPUSCULAR HGB CONC 32.8 g/dL (33.0-36.5); MEAN CORPUSCULAR VOLUME 90.6 FL (78-98); MEAN PLATELET VOLUME 7.8 FL (7.4-10.4); MONOCYTES # (AUTO) 0.5 X10'3 (0-0.9); MONOCYTES % (AUTO) 6.6 % (2-12); NEUTROPHILS # (AUTO) 5.6 X10'3 (1.8-7.7); NEUTROPHILS % (AUTO) 73.8 % (42-75); PLATELET COUNT 280 X10'3 (140-440); RED BLOOD COUNT 2.71 X10'6 (4.20-5.60); RED CELL DISTRIBUTION WIDTH 15.6 % (11.5-14.5); WHITE BLOOD COUNT 7.6 X10'3 (4.5-11.0)
[2018-10-31 06:21] LABS: ALANINE AMINOTRANSFERASE 12 U/L (12-78); ALBUMIN 2.3 G/DL (3.4-5.0); ALBUMIN/GLOBULIN RATIO 0.7 (1.1-1.5); ALKALINE PHOSPHATASE 37 IU/L (46-116); ANION GAP 7 (8-16); ASPARTATE AMINO TRANSFERASE 12 U/L (10-37); BILIRUBIN,TOTAL 0.2 MG/DL (0.1-1.0); BLOOD UREA NITROGEN 10 MG/DL (7-18); BUN/CREATININE RATIO 11.8 (6.6-38.0); CALCIUM 8.2 MG/DL (8.5-10.1); CHLORIDE 110 MMOL/L (99-107); CREATININE 0.85 MG/DL (0.40-0.90); GLUCOSE 114 MG/DL (70-104); MAGNESIUM 1.8 MG/DL (1.5-2.4); PHOSPHORUS 1.6 MG/DL (2.3-4.5); POTASSIUM 3.3 MMOL/L (3.5-5.1); SODIUM 143 MMOL/L (135-145); TOTAL CARBON DIOXIDE 26.3 MMOL/L (24-32); TOTAL PROTEIN 5.6 G/DL (6.4-8.2); eGFR 65 ML/MIN
--- NOTE | 2018-10-31 06:44 | NUR ---
Problems reprioritized. Patient report given, questions answered & plan of care reviewed with Brianna Lopez RN.
[2018-10-31 08:00] VITALS: BP 121/73
[2018-10-31] MEDS: K and/or MAG REPLACEMENT MC SCH (08:00)
[2018-10-31] MEDS: lactobacillus rhamnosus 10,000 MMU CELLS/CAPSULE PO SCH (08:00)
[2018-10-31] MEDS: metoprolol succinate 25mg (24-HOUR) SR. Tablet PO SCH (08:00)
[2018-10-31] MEDS: levoTHYROXINE 75mcg tablet PO SCH (08:00)
[2018-10-31] MEDS: amLODIPine 5mg tablet PO SCH (08:00)
[2018-10-31] MEDS: montelukast 10mg tablet PO SCH (08:00)
[2018-10-31] MEDS: atorvastatin 10mg tablet PO SCH (08:00)
[2018-10-31] MEDS: heparin, porcine 5000 units/ml vial SQ SCH ×2 (09:16→20:10)
[2018-10-31 12:00] VITALS: BP 122/43
[2018-10-31] MEDS ORDERED: potassium phosphate inj 30 MMOL in normal saline 500ml IV soln 490 ML IV ONE (12:15)
[2018-10-31] MEDS ORDERED: magnesium 4gm in 100ml NS 100 ML IV PRN (12:30)
[2018-10-31] MEDS ORDERED: magnesium Cl slow-release 64mg tablet PO PRN (12:30)
[2018-10-31] MEDS ORDERED: potassium CL 10mEq/100ml bag 100 ML IV PRN (12:30)
[2018-10-31] MEDS ORDERED: potassium Cl 20 mEq SR tablet PO PRN ×2 (12:30)
[2018-10-31] MEDS: oxyCODONE/APAP 10/325mg tablet PO PRN ×3 (13:47→22:59)
[2018-10-31] MEDS: metoclopramide 5 mg/ml inj IV SCH ×2 (13:47→20:15)
[2018-10-31] MEDS: ondansetron/PF 4mg/2ml inj IV PRN (14:15)
--- NOTE | 2018-10-31 16:57 | NUR ---
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 POD #1. NPO with NG tube for suction. Pt previously admitted and provided with colostomy nutrition therapy education in June of this year then was provided with colostomy takedown nutrition therapy education with a list of fiber content in foods September 30 of this year. Pt seen at bedside this visit provided with written and verbal colostomy nutrition therapy education with RD contact information. Pt currently NPO with bowel sounds and no stool yet per MD notes. LBM 10/28. Pt previously with PRN Reglan which has since been changed to routine Reglan. D/w RN recommendation for opiate antagonist with MD approval to help with BM. Will continue to follow. Recommendations: 1) Advance to low residue diet as medically indicated 2) Opiate antagonist per MD approval 3) Wt per rx Addendum: 10/31/18 at [address] Amended: Links added.
[2018-10-31 18:00] VITALS: BP 141/54
--- NOTE | 2018-10-31 18:43 | NUR ---
Problems reprioritized. Patient report given, questions answered & plan of care reviewed with VICTOR MANUEL Arroyo.
--- NOTE | 2018-10-31 18:48 | NUR ---
Dressing changed per dr toure's order,packing taken out with out issues, while changing dressing noticed staple had dislodged on one side other side still in near umbilical area, steri-strip placed per dr toure , night RN will take out the dislodged staple with assessment
--- NOTE | 2018-10-31 18:56 | NUR ---
Patient in room GLYNN 354. I have received report from Brianna Lopez RN and had the opportunity to ask questions and assume patient care.
[2018-11-01] VITALS: BP 125/84
[2018-11-01] MEDS: piperacillin/tazo 3.375gm/50ml 50 ML IV SCH ×3 (00:45→16:29)
[2018-11-01] MEDS: metoclopramide 5 mg/ml inj IV SCH ×2 (01:55→07:52)
[2018-11-01] MEDS: oxyCODONE/APAP 10/325mg tablet PO PRN (03:01)
[2018-11-01 05:57] LABS: ALBUMIN 2.3 G/DL (3.4-5.0); ANION GAP 7 (8-16); BLOOD UREA NITROGEN 6 MG/DL (7-18); BUN/CREATININE RATIO 7.9 (6.6-38.0); CALCIUM 8.6 MG/DL (8.5-10.1); CHLORIDE 111 MMOL/L (99-107); CREATININE 0.76 MG/DL (0.40-0.90); GLUCOSE 122 MG/DL (70-104); POTASSIUM 3.4 MMOL/L (3.5-5.1); SODIUM 143 MMOL/L (135-145); TOTAL CARBON DIOXIDE 25.3 MMOL/L (24-32); eGFR 74 ML/MIN
[2018-11-01 06:11] LABS: BASOPHILS % (AUTO) 0.4 % (0-1); EOSINOPHILS # (AUTO) 0.2 X10'3 (0-0.9); EOSINOPHILS % (AUTO) 3.4 % (0-6); HEMATOCRIT 23.8 % (35.0-45.0); HEMOGLOBIN 7.8 g/dl (12.0-16.0); LYMPHOCYTES % (AUTO) 18.7 % (21-51); MEAN CORPUSCULAR HEMOGLOBIN 29.5 PG (27.0-31.0); MEAN CORPUSCULAR HGB CONC 32.7 g/dL (33.0-36.5); MEAN CORPUSCULAR VOLUME 90.1 FL (78-98); MEAN PLATELET VOLUME 7.7 FL (7.4-10.4); MONOCYTES # (AUTO) 0.4 X10'3 (0-0.9); MONOCYTES % (AUTO) 7.2 % (2-12); NEUTROPHILS # (AUTO) 3.8 X10'3 (1.8-7.7); NEUTROPHILS % (AUTO) 70.3 % (42-75); PLATELET COUNT 275 X10'3 (140-440); RED BLOOD COUNT 2.65 X10'6 (4.20-5.60); RED CELL DISTRIBUTION WIDTH 15.6 % (11.5-14.5); WHITE BLOOD COUNT 5.4 X10'3 (4.5-11.0)
--- NOTE | 2018-11-01 06:46 | NUR ---
Problems reprioritized. Patient report given, questions answered & plan of care reviewed with VICTOR MANUEL Garcia.
[2018-11-01 07:00] VITALS: BP 147/77
[2018-11-01] MEDS: levoTHYROXINE 75mcg tablet PO SCH (07:51)
[2018-11-01] MEDS: heparin, porcine 5000 units/ml vial SQ SCH ×2 (07:52→19:53)
[2018-11-01] MEDS: dextrose 5%-normal saline 1,000 ML IV SCH (07:52)
[2018-11-01] MEDS: K and/or MAG REPLACEMENT MC SCH (07:59)
--- NOTE | 2018-11-01 10:30 | NUR ---
Spoke with hospitalist regarding k+ level of 3.4 on this AM. IV fluids changed to D5 1/2NS with 20mEq of potassium. Hospitalist would like lab to draw a potassium level at 1700 and then assess the need for further replacement. Hospitalist stated for now the fluids will suffice for replacement.
[2018-11-01] MEDS: potassium CL 20mEq in D5-1/2NS 1,000 ML IV SCH (10:47)
[2018-11-01 11:49] VITALS: BP 146/61
[2018-11-01 18:32] LABS: POTASSIUM 3.2 MMOL/L (3.5-5.1)
--- NOTE | 2018-11-01 18:33 | NUR ---
Problems reprioritized. Patient report given, questions answered & plan of care reviewed with VICTOR MANUEL May.
--- NOTE | 2018-11-01 18:35 | NUR ---
Patient in room GLYNN 354. I have received report from GE RUSH and had the opportunity to ask questions and assume patient care.
--- NOTE | 2018-11-01 19:08 | NUR ---
CLINICAL MASSAGE THERAPIST REPORTED, PATIENT WITH 28 BEAT RUN OF V-TACH, VITAL SIGNS TAKEN BP161/59 HR82 RR16 SATS94% RA T98.[address] ALBARRAN WITH ORDERS TO CHECK MAGNESIUM AND PHOS AND REPLACE POTASSIUM.
[2018-11-01] MEDS ORDERED: magnesium 4gm in 100ml NS 100 ML IV PRN (19:20)
[2018-11-01] MEDS ORDERED: potassium Cl 20 mEq SR tablet PO PRN ×2 (19:20)
[2018-11-01] MEDS ORDERED: magnesium 2GM in 50ml NS 50 ML IV PRN (19:20)
[2018-11-01 19:32] LABS: MAGNESIUM 1.8 MG/DL (1.5-2.4)
[2018-11-01] MEDS: potassium CL 10mEq/100ml bag 100 ML IV PRN ×3 (19:47→23:22)
[2018-11-01 20:00] VITALS: BP 154/64
[2018-11-02] VITALS: BP 158/66
[2018-11-02] MEDS: piperacillin/tazo 3.375gm/50ml 50 ML IV SCH ×4 (00:05→23:27)
[2018-11-02] MEDS: potassium CL 10mEq/100ml bag 100 ML IV PRN (01:20)
[2018-11-02 05:33] LABS: BASOPHILS % (AUTO) 0.6 % (0-1); EOSINOPHILS # (AUTO) 0.2 X10'3 (0-0.9); HEMATOCRIT 26.1 % (35.0-45.0); HEMOGLOBIN 8.5 g/dl (12.0-16.0); LYMPHOCYTES # (AUTO) 1.2 X10'3 (1.1-4.8); LYMPHOCYTES % (AUTO) 24.3 % (21-51); MEAN CORPUSCULAR HEMOGLOBIN 29.2 PG (27.0-31.0); MEAN CORPUSCULAR HGB CONC 32.7 g/dL (33.0-36.5); MEAN CORPUSCULAR VOLUME 89.1 FL (78-98); MEAN PLATELET VOLUME 7.4 FL (7.4-10.4); MONOCYTES # (AUTO) 0.5 X10'3 (0-0.9); MONOCYTES % (AUTO) 9.5 % (2-12); NEUTROPHILS # (AUTO) 3.1 X10'3 (1.8-7.7); NEUTROPHILS % (AUTO) 61.6 % (42-75); PLATELET COUNT 316 X10'3 (140-440); RED BLOOD COUNT 2.93 X10'6 (4.20-5.60); RED CELL DISTRIBUTION WIDTH 15.5 % (11.5-14.5); WHITE BLOOD COUNT 5.1 X10'3 (4.5-11.0)
[2018-11-02 05:48] LABS: ALBUMIN 2.5 G/DL (3.4-5.0); ANION GAP 6 (8-16); BLOOD UREA NITROGEN 4 MG/DL (7-18); CALCIUM 9.2 MG/DL (8.5-10.1); CHLORIDE 112 MMOL/L (99-107); GLUCOSE 105 MG/DL (70-104); MAGNESIUM 1.7 MG/DL (1.5-2.4); PHOSPHORUS 2.2 MG/DL (2.3-4.5); POTASSIUM 3.9 MMOL/L (3.5-5.1); SODIUM 145 MMOL/L (135-145); TOTAL CARBON DIOXIDE 26.9 MMOL/L (24-32); eGFR 69 ML/MIN
[2018-11-02] MEDS: potassium CL 20mEq in D5-1/2NS 1,000 ML IV SCH ×2 (05:50→12:28)
--- NOTE | 2018-11-02 06:30 | NUR ---
Problems reprioritized. Patient report given, questions answered & plan of care reviewed with MILLI RUSH AND ALLY RUSH.
--- NOTE | 2018-11-02 06:57 | NUR ---
Patient in room GLYNN 354. I have received report from TYREL RUSH and had the opportunity to ask questions and assume patient care.
[2018-11-02 08:00] VITALS: BP 165/81
[2018-11-02] MEDS: K and/or MAG REPLACEMENT MC SCH (08:00)
[2018-11-02] MEDS: levoTHYROXINE 75mcg tablet PO SCH (08:33)
[2018-11-02] MEDS: metoprolol succinate 25mg (24-HOUR) SR. Tablet PO SCH (08:33)
[2018-11-02] MEDS: heparin, porcine 5000 units/ml vial SQ SCH ×2 (08:34→20:53)
[2018-11-02] MEDS: oxyCODONE/APAP 10/325mg tablet PO PRN ×3 (12:27→20:54)
[2018-11-02] MEDS: ondansetron/PF 4mg/2ml inj IV PRN (12:29)
--- NOTE | 2018-11-02 18:37 | NUR ---
Problems reprioritized. Patient report given, questions answered & plan of care reviewed with Teresa RUSH.
[2018-11-02 20:00] VITALS: BP 122/48
--- NOTE | 2018-11-02 22:01 | NUR ---
Patient in room GLYNN 354. I have received report from VICTOR MANUEL Hein and had the opportunity to ask questions and assume patient care. Addendum: 11/02/18 at 2208 by Teresa Donnelly RN Amended: Links added.
[2018-11-03 00:01] VITALS: BP 107/58
--- NOTE | 2018-11-03 06:14 | NUR ---
Problems reprioritized. Patient report given, questions answered & plan of care reviewed with VICTOR MANUEL Hein. Addendum: 11/03/18 at 0614 by Teresa Donnelly RN Amended: Links added.
--- NOTE | 2018-11-03 06:24 | NUR ---
Patient in room GLYNN 354. I have received report from Teresa RUSH and had the opportunity to ask questions and assume patient care.
[2018-11-03 06:33] LABS: BASOPHILS % (AUTO) 0.9 % (0-1); EOSINOPHILS # (AUTO) 0.2 X10'3 (0-0.9); EOSINOPHILS % (AUTO) 4.2 % (0-6); HEMATOCRIT 26.5 % (35.0-45.0); HEMOGLOBIN 8.8 g/dl (12.0-16.0); LYMPHOCYTES # (AUTO) 1.5 X10'3 (1.1-4.8); LYMPHOCYTES % (AUTO) 26.9 % (21-51); MEAN CORPUSCULAR HEMOGLOBIN 29.6 PG (27.0-31.0); MEAN CORPUSCULAR HGB CONC 33.2 g/dL (33.0-36.5); MEAN PLATELET VOLUME 7.8 FL (7.4-10.4); MONOCYTES # (AUTO) 0.5 X10'3 (0-0.9); MONOCYTES % (AUTO) 9.6 % (2-12); NEUTROPHILS # (AUTO) 3.2 X10'3 (1.8-7.7); NEUTROPHILS % (AUTO) 58.4 % (42-75); PLATELET COUNT 328 X10'3 (140-440); RED BLOOD COUNT 2.98 X10'6 (4.20-5.60); RED CELL DISTRIBUTION WIDTH 15.4 % (11.5-14.5); WHITE BLOOD COUNT 5.5 X10'3 (4.5-11.0)
[2018-11-03 06:47] LABS: ALANINE AMINOTRANSFERASE 14 U/L (12-78); ALBUMIN 2.6 G/DL (3.4-5.0); ALBUMIN/GLOBULIN RATIO 0.8 (1.1-1.5); ALKALINE PHOSPHATASE 46 IU/L (46-116); ANION GAP 8 (8-16); ASPARTATE AMINO TRANSFERASE 15 U/L (10-37); BILIRUBIN,TOTAL 0.2 MG/DL (0.1-1.0); BLOOD UREA NITROGEN 6 MG/DL (7-18); BUN/CREATININE RATIO 6.6 (6.6-38.0); CALCIUM 9.1 MG/DL (8.5-10.1); CHLORIDE 108 MMOL/L (99-107); CREATININE 0.91 MG/DL (0.40-0.90); GLUCOSE 90 MG/DL (70-104); MAGNESIUM 1.7 MG/DL (1.5-2.4); POTASSIUM 3.8 MMOL/L (3.5-5.1); SODIUM 144 MMOL/L (135-145); TOTAL CARBON DIOXIDE 27.6 MMOL/L (24-32); eGFR 60 ML/MIN
[2018-11-03] MEDS: levoTHYROXINE 75mcg tablet PO SCH (07:45)
[2018-11-03] MEDS: heparin, porcine 5000 units/ml vial SQ SCH ×2 (07:46→20:49)
[2018-11-03] MEDS: metoprolol succinate 25mg (24-HOUR) SR. Tablet PO SCH (07:46)
[2018-11-03 08:00] VITALS: BP 141/55
[2018-11-03] MEDS: K and/or MAG REPLACEMENT MC SCH (08:00)
[2018-11-03] MEDS: piperacillin/tazo 3.375gm/50ml 50 ML IV SCH ×2 (08:05→16:12)
[2018-11-03 11:00] VITALS: BP 113/44
[2018-11-03] MEDS: amLODIPine 5mg tablet PO SCH (11:19)
[2018-11-03] MEDS: atorvastatin 10mg tablet PO SCH (11:20)
[2018-11-03] MEDS: oxyCODONE/APAP 10/325mg tablet PO PRN ×2 (13:15→17:39)
--- NOTE | 2018-11-03 14:50 | NUR ---
reassessment: Pt PO 50-75% avg meals good given age and improving s/p new colostomy placement. Colostomy output 185ml. Will continue to monitor. Recommendations: 1) Advance to low residue diet as medically indicated 2) Opiate antagonist per MD approval 3) Wt per rx Addendum: 11/03/18 at [address] Amended: Links added.
--- NOTE | 2018-11-03 15:57 | NUR ---
Spoke with patient regarding ostomy supplies. She is comfortable with changing bag and has some supplies at home. She gave me permission to have the start up kit sent to her house from [facility].. She has used shield in the past. I asked the nurse to have case management see about starting up that service again.
--- NOTE | 2018-11-03 17:47 | NUR ---
patient seen by DR berry, and DR Nicholas. MEKHI drain DC per DR Berry, tolerated procedure. VSS.
[2018-11-03 18:00] VITALS: BP 117/48
--- NOTE | 2018-11-03 18:16 | NUR ---
Problems reprioritized. Patient report given, questions answered & plan of care reviewed with Lalo RUSH.
--- NOTE | 2018-11-03 18:30 | NUR ---
Patient in room GLYNN 354. I have received report from ELVIA RUSH and had the opportunity to ask questions and assume patient care.
[2018-11-04 00:02] VITALS: BP 141/55
[2018-11-04 05:03] LABS: BASOPHILS % (AUTO) 0.6 % (0-1); EOSINOPHILS # (AUTO) 0.2 X10'3 (0-0.9); EOSINOPHILS % (AUTO) 3.9 % (0-6); HEMATOCRIT 26.6 % (35.0-45.0); HEMOGLOBIN 8.9 g/dl (12.0-16.0); LYMPHOCYTES # (AUTO) 1.6 X10'3 (1.1-4.8); MEAN CORPUSCULAR HEMOGLOBIN 29.8 PG (27.0-31.0); MEAN CORPUSCULAR HGB CONC 33.4 g/dL (33.0-36.5); MEAN CORPUSCULAR VOLUME 89.4 FL (78-98); MEAN PLATELET VOLUME 7.6 FL (7.4-10.4); MONOCYTES # (AUTO) 0.5 X10'3 (0-0.9); NEUTROPHILS # (AUTO) 3.2 X10'3 (1.8-7.7); NEUTROPHILS % (AUTO) 57.5 % (42-75); PLATELET COUNT 320 X10'3 (140-440); RED BLOOD COUNT 2.98 X10'6 (4.20-5.60); RED CELL DISTRIBUTION WIDTH 15.6 % (11.5-14.5); WHITE BLOOD COUNT 5.5 X10'3 (4.5-11.0)
[2018-11-04 05:13] LABS: ALANINE AMINOTRANSFERASE 13 U/L (12-78); ALBUMIN 2.6 G/DL (3.4-5.0); ALBUMIN/GLOBULIN RATIO 0.8 (1.1-1.5); ALKALINE PHOSPHATASE 48 IU/L (46-116); ANION GAP 8 (8-16); ASPARTATE AMINO TRANSFERASE 11 U/L (10-37); BILIRUBIN,TOTAL 0.2 MG/DL (0.1-1.0); BLOOD UREA NITROGEN 7 MG/DL (7-18); BUN/CREATININE RATIO 7.1 (6.6-38.0); CALCIUM 9.2 MG/DL (8.5-10.1); CHLORIDE 108 MMOL/L (99-107); CREATININE 0.98 MG/DL (0.40-0.90); GLUCOSE 91 MG/DL (70-104); MAGNESIUM 1.5 MG/DL (1.5-2.4); POTASSIUM 3.9 MMOL/L (3.5-5.1); SODIUM 144 MMOL/L (135-145); TOTAL CARBON DIOXIDE 27.9 MMOL/L (24-32); TOTAL PROTEIN 5.9 G/DL (6.4-8.2); eGFR 55 ML/MIN
--- NOTE | 2018-11-04 06:30 | NUR ---
Problems reprioritized. Patient report given, questions answered & plan of care reviewed with TANESHA RUSH AND MILO RUSH.
--- NOTE | 2018-11-04 06:45 | NUR ---
Patient in room GLYNN 354. I have received report from Hooper RN and had the opportunity to ask questions and assume patient care.
[2018-11-04 06:48] VITALS: BP 123/49
[2018-11-04] MEDS: levoTHYROXINE 75mcg tablet PO SCH (07:34)
[2018-11-04] MEDS: atorvastatin 10mg tablet PO SCH (07:34)
[2018-11-04] MEDS: metoprolol succinate 25mg (24-HOUR) SR. Tablet PO SCH (07:34)
[2018-11-04] MEDS: amLODIPine 5mg tablet PO SCH (07:34)
[2018-11-04] MEDS: heparin, porcine 5000 units/ml vial SQ SCH ×3 (07:35→19:41)
[2018-11-04] MEDS: K and/or MAG REPLACEMENT MC SCH (08:00)
[2018-11-04] MEDS: amox tr/potassium clavulanate 875/125mg TAB PO SCH ×2 (08:44→17:29)
[2018-11-04] MEDS: lactobacillus rhamnosus 10,000 MMU CELLS/CAPSULE PO SCH ×2 (08:45→19:42)
[2018-11-04] MEDS: oxyCODONE/APAP 10/325mg tablet PO PRN ×2 (08:45→19:42)
[2018-11-04] MEDS: montelukast 10mg tablet PO SCH (08:45)
[2018-11-04 13:35] VITALS: BP 124/51
--- NOTE | 2018-11-04 18:32 | NUR ---
Problems reprioritized. Patient report given, questions answered & plan of care reviewed with Trent RUSH.
--- NOTE | 2018-11-04 18:35 | NUR ---
Patient in room GLYNN 354. I have received report from VICTOR MANUEL Mac and had the opportunity to ask questions and assume patient care.
[2018-11-04 20:00] VITALS: BP 126/46
[2018-11-05 00:50] VITALS: BP 143/53
--- NOTE | 2018-11-05 06:23 | NUR ---
Problems reprioritized. Patient report given, questions answered & plan of care reviewed with VICTOR MANUEL Browne.
[2018-11-05] MEDS: levoTHYROXINE 75mcg tablet PO SCH (07:24)
[2018-11-05] MEDS: lactobacillus rhamnosus 10,000 MMU CELLS/CAPSULE PO SCH (07:24)
[2018-11-05] MEDS: metoprolol succinate 25mg (24-HOUR) SR. Tablet PO SCH (07:24)
[2018-11-05] MEDS: montelukast 10mg tablet PO SCH (07:25)
[2018-11-05] MEDS: atorvastatin 10mg tablet PO SCH (07:25)
[2018-11-05] MEDS: amLODIPine 5mg tablet PO SCH (07:26)
[2018-11-05] MEDS: heparin, porcine 5000 units/ml vial SQ SCH (07:28)
[2018-11-05 08:00] VITALS: BP 126/55
[2018-11-05] MEDS: K and/or MAG REPLACEMENT MC SCH (08:00)
[2018-11-05] MEDS ORDERED: LEVO75TA PO (08:11)
[2018-11-05] MEDS ORDERED: AMOX-580 PO (08:11)
[2018-11-05] MEDS ORDERED: ALPR-149 PO (08:11)
[2018-11-05] MEDS ORDERED: PER10325T PO (08:11)
[2018-11-05] MEDS: amox tr/potassium clavulanate 875/125mg TAB PO SCH (08:15)
== END 2018-11-05 11:32 | disposition home health service (06) | DRG 329 ==
LOC: ER 09:10 → SUR 3N 12:50 → CMPBEDREQ 10-27 19:33 → ICU 2S 10-28 21:06 → SUR 3N 10-30 10:30
PROVIDERS: ADMIT Family Medicine; ATTEND Family Medicine
PROC: BW211ZZ Computerized Tomography (CT Scan) of Abdomen and Pelvis using Low Osmolar Contrast (ICD-10-PCS; 2018-10-26)
PROC: 0UT90ZZ Resection of Uterus, Open Approach (ICD-10-PCS; 2018-10-28)
PROC: 0UT60ZZ Resection of Left Fallopian Tube, Open Approach (ICD-10-PCS; 2018-10-28)
PROC: 0D1L0Z4 Bypass Transverse Colon to Cutaneous, Open Approach (ICD-10-PCS; 2018-10-28)
PROC: 0DN80ZZ Release Small Intestine, Open Approach (ICD-10-PCS; 2018-10-28)
PROC: 5A09357 Assistance with Respiratory Ventilation, Less than 24 Consecutive Hours, Continuous Positive Airway Pressure (ICD-10-PCS; 2018-10-28)
PROC: 0UT10ZZ Resection of Left Ovary, Open Approach (ICD-10-PCS; 2018-10-28)
PROC: 3E0T3BZ Introduction of Anesthetic Agent into Peripheral Nerves and Plexi, Percutaneous Approach (ICD-10-PCS; 2018-10-28)
PROC: 0UQG0ZZ Repair Vagina, Open Approach (ICD-10-PCS; principal; 2018-10-28 16:02)
PROC: 0DQP0ZZ Repair Rectum, Open Approach (ICD-10-PCS; 2018-10-28 16:02)
PROC: 5A09357 Assistance with Respiratory Ventilation, Less than 24 Consecutive Hours, Continuous Positive Airway Pressure (ICD-10-PCS; 2018-10-29)
DX: K94.09 Other complications of colostomy (principal); J96.00 Acute respiratory failure, unspecified whether with hypoxia or hypercapnia; N82.3 Fistula of vagina to large intestine; K56.7 Ileus, unspecified; K66.0 Peritoneal adhesions (postprocedural) (postinfection); E78.00 Pure hypercholesterolemia, unspecified; E78.5 Hyperlipidemia, unspecified; F41.9 Anxiety disorder, unspecified; J45.909 Unspecified asthma, uncomplicated; K21.9 Gastro-esophageal reflux disease without esophagitis; Z96.643 Presence of artificial hip joint, bilateral; D63.8 Anemia in other chronic diseases classified elsewhere; E87.6 Hypokalemia; F32.9 Major depressive disorder, single episode, unspecified; G89.29 Other chronic pain; Z60.2 Problems related to living alone; E03.9 Hypothyroidism, unspecified; I10 Essential (primary) hypertension; Z88.8 Allergy status to other drugs, medicaments and biological substances; Z79.899 Other long term (current) drug therapy; Z79.82 Long term (current) use of aspirin; Z79.890 Hormone replacement therapy; Z86.73 Personal history of transient ischemic attack (TIA), and cerebral infarction without residual deficits; Z90.49 Acquired absence of other specified parts of digestive tract; Z90.710 Acquired absence of both cervix and uterus; Z98.49 Cataract extraction status, unspecified eye; Y83.8 Other surgical procedures as the cause of abnormal reaction of the patient, or of later complication, without mention of misadventure at the time of the procedure; Y92.89 Other specified places as the place of occurrence of the external cause
CPT/HCPCS: 36415; 36600; 74177; 80048; 80053; 81003; 82803; 82948; 83605; 83735; 84100; 84132; 84443; 85018; 85025; 85027; 85610; 85730; 86885; 86900; 86901; 87040; 87081; 88307; 93005; 94660; 94760; 96374; 97110; 97116; 97161; 97530; 99285; A4421; A4618; A6253; A6402; A6407; A6449; A7000; C9290; G0378; J0694; J1100; J1170; J1580; J1644; J2250; J2270; J2310; J2405; J2543; J2710; J2765; J3010; J3480; J3490; J7040; J7042; J7120; P9045; Q9963; Q9967

== ENCOUNTER 2018-11-22 12:23 | Inpatient (IN) | payer MEDICARE ==
[~2018-11-22] VITALS: Ht 149.9 cm; Wt 72.7 kg
[~2018-11-22 12:23] MED LIST changes: +ALPR-149 PO; +AMOX-580 PO; +ATOR10TA70 PO; +BUSP5TAB3 PO; +FAMO40TA58 PO; +MELO-100 PO; +METO50TA7 PO; +MONT10TA21 PO; +PER10325T PO
[2018-11-22] MEDS ORDERED: acetaminophen 325mg tablet PO STA (12:44)
[2018-11-22] MEDS ORDERED: normal saline 1000ML IV soln IV ONE (12:45)
[2018-11-22 13:11] LABS: BASOPHILS % (AUTO) 0.5 % (0-1); EOSINOPHILS # (AUTO) 0.1 X10'3 (0-0.9); EOSINOPHILS % (AUTO) 1.8 % (0-6); HEMATOCRIT 31.3 % (35.0-45.0); HEMOGLOBIN 10.4 g/dl (12.0-16.0); LYMPHOCYTES # (AUTO) 0.4 X10'3 (1.1-4.8); LYMPHOCYTES % (AUTO) 4.8 % (21-51); MEAN CORPUSCULAR HEMOGLOBIN 29.3 PG (27.0-31.0); MEAN CORPUSCULAR HGB CONC 33.1 g/dL (33.0-36.5); MEAN CORPUSCULAR VOLUME 88.5 FL (78-98); MEAN PLATELET VOLUME 6.9 FL (7.4-10.4); MONOCYTES # (AUTO) 0.5 X10'3 (0-0.9); MONOCYTES % (AUTO) 6.2 % (2-12); NEUTROPHILS # (AUTO) 7.1 X10'3 (1.8-7.7); NEUTROPHILS % (AUTO) 86.7 % (42-75); PLATELET COUNT 337 X10'3 (140-440); RED BLOOD COUNT 3.54 X10'6 (4.20-5.60); RED CELL DISTRIBUTION WIDTH 15.8 % (11.5-14.5); WHITE BLOOD COUNT 8.2 X10'3 (4.5-11.0)
[2018-11-22] MEDS ORDERED: piperacillin/tazo 3.375gm/50ml 50 ML IV ONE (13:20)
[2018-11-22 13:36] LABS: ALANINE AMINOTRANSFERASE 14 U/L (12-78); ALBUMIN 3.5 G/DL (3.4-5.0); ALBUMIN/GLOBULIN RATIO 0.8 (1.1-1.5); ALKALINE PHOSPHATASE 72 IU/L (46-116); ANION GAP 11 (8-16); ASPARTATE AMINO TRANSFERASE 13 U/L (10-37); BILIRUBIN,TOTAL 0.6 MG/DL (0.1-1.0); BLOOD UREA NITROGEN 10 MG/DL (7-18); BUN/CREATININE RATIO 9.9 (6.6-38.0); CALCIUM 9.1 MG/DL (8.5-10.1); CHLORIDE 101 MMOL/L (99-107); CREATININE 1.01 MG/DL (0.40-0.90); GLUCOSE 111 MG/DL (70-104); MAGNESIUM 1.2 MG/DL (1.5-2.4); POTASSIUM 3.4 MMOL/L (3.5-5.1); SODIUM 139 MMOL/L (135-145); TOTAL CARBON DIOXIDE 26.9 MMOL/L (24-32); TOTAL PROTEIN 7.7 G/DL (6.4-8.2); eGFR 53 ML/MIN
[2018-11-22] MEDS ORDERED: mag hydrox/Alum hydrox/simeth 30ml oral suspension PO PRN (14:25)
[2018-11-22] MEDS ORDERED: acetaminophen 325mg tablet PO PRN (14:25)
[2018-11-22] MEDS ORDERED: magnesium hydroxide 30ml (MOM) UD suspension PO PRN (14:25)
[2018-11-22] MEDS ORDERED: ondansetron/PF 4mg/2ml inj IV PRN (14:25)
[2018-11-22] MEDS ORDERED: morphine 2 MG/ML inj. syringe IV PRN (14:25)
[2018-11-22] MEDS: morphine 2 MG/ML inj. syringe IV PRN ×2 (15:05→20:31)
[2018-11-22] MEDS ORDERED: linezolid 600mg/300ml PREMIX 300 ML IV ONE (15:50)
[2018-11-22] MEDS: piperacillin/tazo 3.375gm/50ml 50 ML IV SCH (16:00)
--- NOTE | 2018-11-22 17:01 | NUR ---
RECEIVED PATIENT TO ROOM 353 VIA GURNEY ACCOMPANIED BY X2 STAFF. PATIENT ABLE TO TRANSFER TO BED WITH X1 ASSIST. PATIENT A&O AND ORIENTED TO ROOM AND CALL LIGHT. CALL LIGHT WITHIN REACH OF PATIENT. BED IS LOW AND LOCKED.
[2018-11-22 17:20] VITALS: BP 127/47
[2018-11-22 18:15] VITALS: BP 125/74
[2018-11-22] MEDS: normal saline 1000ml 1,000 ML IV SCH ×2 (18:31→23:14)
--- NOTE | 2018-11-22 18:33 | NUR ---
Patient in room [facility]. I have received report from VICTOR MANUEL Mac and had the opportunity to ask questions and assume patient care.
--- NOTE | 2018-11-22 18:55 | NUR ---
Problems reprioritized. Patient report given, questions answered & plan of care reviewed with jennifer albarado.
[2018-11-22] MEDS: linezolid 600mg/300ml PREMIX 300 ML IV SCH (19:42)
[2018-11-22] MEDS: heparin, porcine 5000 units/ml vial SQ SCH (19:54)
[2018-11-22] MEDS: NEOMYCIN EACHEYE SCH (22:42)
[2018-11-22] MEDS: DEXAMETHASONE EACHEYE SCH (22:42)
[2018-11-22] MEDS: POLYMYXIN B EACHEYE SCH (22:42)
[2018-11-22 23:54] LABS: CLARITY,URINE CLEAR (Clear); COLOR,URINE YELLOW (Yellow); GLUCOSE, URINE NEGATIVE (Neg); KETONES,URINE NEGATIVE (Neg); LEUKOCYTE ESTERASE ,URINE TRACE (Neg); NITRITES, URINE NEGATIVE (Neg); OCCULT BLOOD,URINE NEGATIVE (Neg); PH,URINE 6.5 (4.8-8.0); PROTEIN,URINE NEGATIVE (Neg); UROBILINOGEN,URINE 0.2 E.U/dL (0.2-1.0)
[2018-11-22 23:59] LABS: UA COLLECTION TYPE CLN CATCH MIDSTREAM
[2018-11-23] LABS: BACTERIA,URINE FEW /HPF (Neg); RBC,URINE NONE SEEN /HPF (0-2); SQUAMOUS EPITHELIAL CELL,UR FEW /LPF (FEW)
[2018-11-23 00:15] VITALS: BP 148/70
[2018-11-23] MEDS: piperacillin/tazo 3.375gm/50ml 50 ML IV SCH ×3 (00:21→15:15)
[2018-11-23] MEDS: morphine 2 MG/ML inj. syringe IV PRN ×2 (00:35→15:23)
[2018-11-23 06:11] LABS: BASOPHILS % (AUTO) 0.3 % (0-1); EOSINOPHILS # (AUTO) 0.2 X10'3 (0-0.9); EOSINOPHILS % (AUTO) 2.4 % (0-6); HEMATOCRIT 26.6 % (35.0-45.0); HEMOGLOBIN 9.1 g/dl (12.0-16.0); LYMPHOCYTES # (AUTO) 0.9 X10'3 (1.1-4.8); LYMPHOCYTES % (AUTO) 10.4 % (21-51); MEAN CORPUSCULAR VOLUME 88.4 FL (78-98); MEAN PLATELET VOLUME 7.4 FL (7.4-10.4); MONOCYTES # (AUTO) 0.6 X10'3 (0-0.9); MONOCYTES % (AUTO) 6.7 % (2-12); NEUTROPHILS # (AUTO) 7.1 X10'3 (1.8-7.7); NEUTROPHILS % (AUTO) 80.2 % (42-75); PLATELET COUNT 291 X10'3 (140-440); RED BLOOD COUNT 3.01 X10'6 (4.20-5.60); RED CELL DISTRIBUTION WIDTH 15.7 % (11.5-14.5); WHITE BLOOD COUNT 8.9 X10'3 (4.5-11.0)
[2018-11-23 06:28] LABS: ALBUMIN 2.8 G/DL (3.4-5.0); ANION GAP 11 (8-16); BLOOD UREA NITROGEN 5 MG/DL (7-18); BUN/CREATININE RATIO 4.6 (6.6-38.0); CHLORIDE 104 MMOL/L (99-107); CREATININE 1.09 MG/DL (0.40-0.90); GLUCOSE 113 MG/DL (70-104); POTASSIUM 3.4 MMOL/L (3.5-5.1); SODIUM 139 MMOL/L (135-145); TOTAL CARBON DIOXIDE 24.2 MMOL/L (24-32); eGFR 49 ML/MIN
--- NOTE | 2018-11-23 06:36 | NUR ---
Patient in room [facility]. I have received report from Avis RUSH and Rosana RUSH "O" and had the opportunity to ask questions and assume patient care.
--- NOTE | 2018-11-23 06:38 | NUR ---
Problems reprioritized. Patient report given, questions answered & plan of care reviewed with VICTOR MANUEL Andujar.
[2018-11-23] MEDS: metoprolol succinate 25mg (24-HOUR) SR. Tablet PO SCH (07:09)
[2018-11-23] MEDS: linezolid 600mg/300ml PREMIX 300 ML IV SCH ×2 (07:09→20:17)
[2018-11-23] MEDS: aspirin 81mg tablet.DR PO SCH (07:09)
[2018-11-23] MEDS: levoTHYROXINE 75mcg tablet PO SCH (07:09)
[2018-11-23] MEDS: atorvastatin 10mg tablet PO SCH (07:09)
[2018-11-23] MEDS: heparin, porcine 5000 units/ml vial SQ SCH ×2 (07:11→20:17)
[2018-11-23] MEDS: POLYMYXIN B EACHEYE SCH ×4 (07:12→20:16)
[2018-11-23] MEDS: NEOMYCIN EACHEYE SCH ×4 (07:12→20:16)
[2018-11-23] MEDS: DEXAMETHASONE EACHEYE SCH ×4 (07:12→20:16)
[2018-11-23 08:00] VITALS: BP 113/61
[2018-11-23 11:00] VITALS: BP 103/46
[2018-11-23] MEDS: normal saline 1000ml 1,000 ML IV SCH ×2 (12:00→20:18)
[2018-11-23] MEDS ORDERED: potassium Cl 20 mEq SR tablet PO PRN ×2 (15:30)
[2018-11-23] MEDS ORDERED: potassium CL 10mEq/100ml bag 100 ML IV PRN (15:30)
--- NOTE | 2018-11-23 17:12 | NUR ---
Malnutrition/zyvox consults: Pt admit w/ sepsis secondary to anterior abdomen cellulitis per MD note. Pt hx R lower quadrant end colostomy w/ no output documented at this time. PO 50% avg first meal this admit. Pt seen by RD for written/verbal zyvox and high protein eds w/ RD contact information provided. Pt reports appetite less than usual; agrees to vanilla ensure pudding TIDWM; dietary notified. Pt has normal strength, no edema, and decent PO so far along w/ no visible signs of malnutrition. Does not meet malnutrition criteria at this time. Will continue to monitor for additional protein needs. Rec: 1. continue regular diet 2. vanilla ensure pudding TIDWM 3. MVI for healing needs per MD approval 4. wt per rx Addendum: 11/23/18 at [address] Amended: Links added.
[2018-11-23 17:15] LABS: MAGNESIUM 1.2 MG/DL (1.5-2.4)
--- NOTE | 2018-11-23 18:21 | NUR ---
Problems reprioritized. Patient report given, questions answered & plan of care reviewed with Odessa RUSH.
--- NOTE | 2018-11-23 18:23 | NUR ---
Patient in room [facility]. I have received report from VICTOR MANUEL Andujar and had the opportunity to ask questions and assume patient care.
--- NOTE | 2018-11-23 18:30 | NUR ---
Patient in room [facility]. I have received report from ARELY and had the opportunity to ask questions and assume patient care. ASSUMED CARE OF PT WITH RIKY North RN.
[2018-11-23 19:00] VITALS: BP 119/50
--- NOTE | 2018-11-23 19:20 | NUR ---
SCREW MACHINE HAND CALLED: HR 130-140. C/O ABD PAIN 11/27. ORDERS OBTAINED TO START PERCOCET PO. PT STATES MORPHINE INEFFECTIVE FOR MAIN. PT MEDICATED FOR PAIN AND NAUSEA. WARM COMPRESS PROVIDED. WILL CONTINUE TO MONITOR.
[2018-11-23] MEDS: oxyCODONE/APAP 10/325mg tablet PO PRN (19:34)
[2018-11-23] MEDS ORDERED: magnesium 2GM in 50ml NS 50 ML IV PRN (21:55)
[2018-11-23] MEDS ORDERED: magnesium 4gm in 100ml NS 100 ML IV PRN (21:55)
[2018-11-23] MEDS: magnesium Cl slow-release 64mg tablet PO PRN (22:08)
[2018-11-24] MEDS: piperacillin/tazo 3.375gm/50ml 50 ML IV SCH ×2 (00:01→10:21)
[2018-11-24 00:42] VITALS: BP 109/43
[2018-11-24 06:15] LABS: BASOPHILS % (AUTO) 0.2 % (0-1); EOSINOPHILS # (AUTO) 0.3 X10'3 (0-0.9); EOSINOPHILS % (AUTO) 5.7 % (0-6); HEMATOCRIT 23.5 % (35.0-45.0); HEMOGLOBIN 7.7 g/dl (12.0-16.0); LYMPHOCYTES # (AUTO) 0.7 X10'3 (1.1-4.8); LYMPHOCYTES % (AUTO) 14.1 % (21-51); MEAN CORPUSCULAR HEMOGLOBIN 29.2 PG (27.0-31.0); MEAN CORPUSCULAR HGB CONC 32.9 g/dL (33.0-36.5); MEAN CORPUSCULAR VOLUME 88.8 FL (78-98); MEAN PLATELET VOLUME 7.4 FL (7.4-10.4); MONOCYTES # (AUTO) 0.4 X10'3 (0-0.9); MONOCYTES % (AUTO) 7.8 % (2-12); NEUTROPHILS # (AUTO) 3.5 X10'3 (1.8-7.7); NEUTROPHILS % (AUTO) 72.2 % (42-75); PLATELET COUNT 227 X10'3 (140-440); RED BLOOD COUNT 2.64 X10'6 (4.20-5.60); RED CELL DISTRIBUTION WIDTH 15.8 % (11.5-14.5); WHITE BLOOD COUNT 4.9 X10'3 (4.5-11.0)
--- NOTE | 2018-11-24 06:28 | NUR ---
Problems reprioritized. Patient report given, questions answered & plan of care reviewed with VICTOR MANUEL Andujar.
[2018-11-24 06:33] LABS: ALBUMIN 2.4 G/DL (3.4-5.0); ANION GAP 8 (8-16); BLOOD UREA NITROGEN 7 MG/DL (7-18); BUN/CREATININE RATIO 7.1 (6.6-38.0); CALCIUM 7.6 MG/DL (8.5-10.1); CHLORIDE 109 MMOL/L (99-107); CREATININE 0.98 MG/DL (0.40-0.90); GLUCOSE 102 MG/DL (70-104); MAGNESIUM 1.2 MG/DL (1.5-2.4); POTASSIUM 3.6 MMOL/L (3.5-5.1); SODIUM 143 MMOL/L (135-145); TOTAL CARBON DIOXIDE 26.4 MMOL/L (24-32); eGFR 55 ML/MIN
--- NOTE | 2018-11-24 06:48 | NUR ---
I have received report from Marleen RUSH and Rosana RN and had the opportunity to ask questions and assume patient care.
--- NOTE | 2018-11-24 07:01 | NUR ---
Patient in room [facility]. I have received report from VICTOR MANUEL Saxena RN and had the opportunity to ask questions and assume patient care.
[2018-11-24] MEDS: linezolid 600mg/300ml PREMIX 300 ML IV SCH (07:46)
[2018-11-24] MEDS: NEOMYCIN EACHEYE SCH ×4 (07:47→20:22)
[2018-11-24] MEDS: DEXAMETHASONE EACHEYE SCH ×4 (07:47→20:22)
[2018-11-24] MEDS: heparin, porcine 5000 units/ml vial SQ SCH ×2 (07:47→20:22)
[2018-11-24] MEDS: metoprolol succinate 25mg (24-HOUR) SR. Tablet PO SCH (07:47)
[2018-11-24] MEDS: POLYMYXIN B EACHEYE SCH ×4 (07:47→20:22)
[2018-11-24] MEDS: atorvastatin 10mg tablet PO SCH (07:48)
[2018-11-24] MEDS: aspirin 81mg tablet.DR PO SCH (07:48)
[2018-11-24] MEDS: levoTHYROXINE 75mcg tablet PO SCH (07:48)
[2018-11-24] MEDS: magnesium Cl slow-release 64mg tablet PO PRN ×2 (07:50→20:22)
[2018-11-24] MEDS: normal saline 1000ml 1,000 ML IV SCH (07:53)
[2018-11-24 08:54] VITALS: BP 134/57
[2018-11-24] MEDS: oxyCODONE/APAP 10/325mg tablet PO PRN ×2 (10:20→17:03)
[2018-11-24 11:00] VITALS: BP 155/52
[2018-11-24] MEDS ORDERED: fentaNYL/PF 50MCG/1 ML 2ML syringe ONE (13:56)
[2018-11-24] MEDS ORDERED: midazolam 2 mg/2 ml injection ONE (13:57)
--- NOTE | 2018-11-24 13:59 | NUR ---
Nurse documentation during orientation: I have reviewed and agree with all interventions, assessments performed and documented by Jessica RUSH .
[2018-11-24] MEDS ORDERED: ondansetron/PF 4mg/2ml inj ONE (14:36)
[2018-11-24] MEDS ORDERED: LIDOcaine 2% (20mg/ml) 5ml vial ONE (14:36)
[2018-11-24] MEDS ORDERED: propofol inj 20 ML IV ONE (14:36)
--- NOTE | 2018-11-24 14:58 | NUR ---
Patient refusing to ambulate, encouraged and educated patient on the need to ambulate per Dr. Paige order.
[2018-11-24] MEDS: fluconazole 100mg tablet PO SCH (15:37)
[2018-11-24 18:15] VITALS: BP 130/58
--- NOTE | 2018-11-24 18:20 | NUR ---
Problems reprioritized. Patient report given, questions answered & plan of care reviewed with VICTOR MANUEL DUMONT RN.
--- NOTE | 2018-11-24 18:30 | NUR ---
Patient in room [facility]. I have received report from JULIA and had the opportunity to ask questions and assume patient care. ASSUMED CARE OF PT WITH RIKY Remy RN
--- NOTE | 2018-11-24 18:31 | NUR ---
Patient in room [facility]. I have received report from Jessica Hatch RN and VICTOR MANUEL Andujar and had the opportunity to ask questions and assume patient care.
[2018-11-24] MEDS: linezolid 600mg tablet PO SCH (20:22)
[2018-11-25 00:15] VITALS: BP 124/73
[2018-11-25 04:59] LABS: BASOPHILS % (AUTO) 0.4 % (0-1); EOSINOPHILS # (AUTO) 0.2 X10'3 (0-0.9); EOSINOPHILS % (AUTO) 4.8 % (0-6); HEMATOCRIT 24.4 % (35.0-45.0); LYMPHOCYTES # (AUTO) 0.9 X10'3 (1.1-4.8); LYMPHOCYTES % (AUTO) 20.3 % (21-51); MEAN CORPUSCULAR HEMOGLOBIN 29.6 PG (27.0-31.0); MEAN CORPUSCULAR HGB CONC 32.9 g/dL (33.0-36.5); MEAN CORPUSCULAR VOLUME 89.8 FL (78-98); MEAN PLATELET VOLUME 7.6 FL (7.4-10.4); MONOCYTES # (AUTO) 0.4 X10'3 (0-0.9); MONOCYTES % (AUTO) 8.5 % (2-12); NEUTROPHILS # (AUTO) 2.8 X10'3 (1.8-7.7); PLATELET COUNT 249 X10'3 (140-440); RED BLOOD COUNT 2.72 X10'6 (4.20-5.60); RED CELL DISTRIBUTION WIDTH 15.6 % (11.5-14.5); WHITE BLOOD COUNT 4.3 X10'3 (4.5-11.0)
[2018-11-25 05:15] LABS: ALBUMIN 2.7 G/DL (3.4-5.0); ANION GAP 12 (8-16); BLOOD UREA NITROGEN 11 MG/DL (7-18); BUN/CREATININE RATIO 10.8 (6.6-38.0); CALCIUM 8.7 MG/DL (8.5-10.1); CHLORIDE 107 MMOL/L (99-107); CREATININE 1.02 MG/DL (0.40-0.90); GLUCOSE 98 MG/DL (70-104); MAGNESIUM 1.5 MG/DL (1.5-2.4); SODIUM 143 MMOL/L (135-145); TOTAL CARBON DIOXIDE 24.2 MMOL/L (24-32); eGFR 52 ML/MIN
--- NOTE | 2018-11-25 06:10 | NUR ---
Patient in room [facility]. I have received report from Odessa RUSH and had the opportunity to ask questions and assume patient care.
--- NOTE | 2018-11-25 06:29 | NUR ---
Problems reprioritized. Patient report given, questions answered & plan of care reviewed with VICTOR MANUEL Andujar and VICTOR MANUEL Zhu.
--- NOTE | 2018-11-25 06:31 | NUR ---
Patient in room [facility]. I have received report from ARELY and had the opportunity to ask questions and assume patient care.
[2018-11-25 07:27] VITALS: BP 146/68
[2018-11-25] MEDS: NEOMYCIN EACHEYE SCH ×4 (07:28→21:27)
[2018-11-25] MEDS: DEXAMETHASONE EACHEYE SCH ×4 (07:28→21:27)
[2018-11-25] MEDS: POLYMYXIN B EACHEYE SCH ×4 (07:28→21:27)
[2018-11-25] MEDS: aspirin 81mg tablet.DR PO SCH (07:29)
[2018-11-25] MEDS: atorvastatin 10mg tablet PO SCH (07:29)
[2018-11-25] MEDS: metoprolol succinate 25mg (24-HOUR) SR. Tablet PO SCH (07:30)
[2018-11-25] MEDS: levoTHYROXINE 75mcg tablet PO SCH (07:30)
[2018-11-25] MEDS: linezolid 600mg tablet PO SCH ×2 (07:31→19:15)
[2018-11-25] MEDS: heparin, porcine 5000 units/ml vial SQ SCH ×2 (07:32→19:16)
[2018-11-25] MEDS: fluconazole 100mg tablet PO SCH (08:40)
[2018-11-25 11:25] VITALS: BP 140/33
--- NOTE | 2018-11-25 12:52 | NUR ---
reassessment: Pt PO 50-75% meals w/ ensure pudding TIDWM. Pt requests alternating between chocolate/vanilla ensure puddings; dietary notified. LBM 11/24; BM x2 w/ colostomy volume not documented. Abdomen redness improving per MD note. Will continue to monitor. Rec: 1. continue regular diet 2. vanilla ensure pudding TIDWM 3. MVI for healing needs per MD approval 4. wt per rx Addendum: 11/25/18 at [address] Amended: Links added.
--- NOTE | 2018-11-25 18:38 | NUR ---
Problems reprioritized. Patient report given, questions answered & plan of care reviewed with
[2018-11-25 20:00] VITALS: BP 131/45
[2018-11-26] VITALS: BP 135/76
[2018-11-26 05:26] LABS: BASOPHILS % (AUTO) 0.6 % (0-1); EOSINOPHILS # (AUTO) 0.2 X10'3 (0-0.9); EOSINOPHILS % (AUTO) 3.3 % (0-6); HEMATOCRIT 25.2 % (35.0-45.0); HEMOGLOBIN 8.4 g/dl (12.0-16.0); LYMPHOCYTES # (AUTO) 1.1 X10'3 (1.1-4.8); LYMPHOCYTES % (AUTO) 23.1 % (21-51); MEAN CORPUSCULAR HEMOGLOBIN 29.3 PG (27.0-31.0); MEAN CORPUSCULAR HGB CONC 33.5 g/dL (33.0-36.5); MEAN CORPUSCULAR VOLUME 87.5 FL (78-98); MEAN PLATELET VOLUME 7.4 FL (7.4-10.4); MONOCYTES # (AUTO) 0.3 X10'3 (0-0.9); MONOCYTES % (AUTO) 7.2 % (2-12); NEUTROPHILS % (AUTO) 65.8 % (42-75); PLATELET COUNT 292 X10'3 (140-440); RED BLOOD COUNT 2.88 X10'6 (4.20-5.60); RED CELL DISTRIBUTION WIDTH 15.7 % (11.5-14.5); WHITE BLOOD COUNT 4.6 X10'3 (4.5-11.0)
[2018-11-26 05:45] LABS: ALBUMIN 2.8 G/DL (3.4-5.0); ANION GAP 10 (8-16); BLOOD UREA NITROGEN 8 MG/DL (7-18); BUN/CREATININE RATIO 8.1 (6.6-38.0); CALCIUM 9.6 MG/DL (8.5-10.1); CHLORIDE 108 MMOL/L (99-107); CREATININE 0.99 MG/DL (0.40-0.90); GLUCOSE 101 MG/DL (70-104); MAGNESIUM 1.6 MG/DL (1.5-2.4); POTASSIUM 3.8 MMOL/L (3.5-5.1); SODIUM 143 MMOL/L (135-145); TOTAL CARBON DIOXIDE 25.2 MMOL/L (24-32); eGFR 54 ML/MIN
--- NOTE | 2018-11-26 06:00 | NUR ---
RECEIVED REPORT FROM MAURICE RUSH
--- NOTE | 2018-11-26 06:32 | NUR ---
Problems reprioritized. Patient report given, questions answered & plan of care reviewed with Maine RUSH.
[2018-11-26 07:00] VITALS: BP 153/60
[2018-11-26] MEDS: linezolid 600mg tablet PO SCH (08:09)
[2018-11-26] MEDS: fluconazole 100mg tablet PO SCH (08:10)
[2018-11-26] MEDS: aspirin 81mg tablet.DR PO SCH (08:10)
[2018-11-26] MEDS: metoprolol succinate 25mg (24-HOUR) SR. Tablet PO SCH (08:10)
[2018-11-26] MEDS: levoTHYROXINE 75mcg tablet PO SCH (08:10)
[2018-11-26] MEDS: heparin, porcine 5000 units/ml vial SQ SCH (08:11)
[2018-11-26] MEDS: atorvastatin 10mg tablet PO SCH (08:11)
[2018-11-26] MEDS: NEOMYCIN EACHEYE SCH (08:11)
[2018-11-26] MEDS: POLYMYXIN B EACHEYE SCH (08:11)
[2018-11-26] MEDS: DEXAMETHASONE EACHEYE SCH (08:11)
[2018-11-26] MEDS ORDERED: LINE600T14 PO (10:47)
[2018-11-26 11:00] VITALS: BP 131/58
== END 2018-11-26 12:55 | disposition home or self-care (01) | DRG 393 ==
LOC: ER 12:23 → ED HOLD 14:57 → SUR 3N 16:45
PROVIDERS: ADMIT Family Medicine; ATTEND Family Medicine
DX: K94.02 Colostomy infection (principal); A41.9 Sepsis, unspecified organism; L03.311 Cellulitis of abdominal wall; E78.00 Pure hypercholesterolemia, unspecified; E78.5 Hyperlipidemia, unspecified; E89.0 Postprocedural hypothyroidism; I73.9 Peripheral vascular disease, unspecified; K21.9 Gastro-esophageal reflux disease without esophagitis; Z96.643 Presence of artificial hip joint, bilateral; Z60.2 Problems related to living alone; F32.9 Major depressive disorder, single episode, unspecified; Y83.3 Surgical operation with formation of external stoma as the cause of abnormal reaction of the patient, or of later complication, without mention of misadventure at the time of the procedure; F41.9 Anxiety disorder, unspecified; G89.29 Other chronic pain; M19.90 Unspecified osteoarthritis, unspecified site; Z90.722 Acquired absence of ovaries, bilateral; Z88.6 Allergy status to analgesic agent; Z88.8 Allergy status to other drugs, medicaments and biological substances; Z79.82 Long term (current) use of aspirin; Z79.890 Hormone replacement therapy; Z86.73 Personal history of transient ischemic attack (TIA), and cerebral infarction without residual deficits; Z90.710 Acquired absence of both cervix and uterus; Z98.49 Cataract extraction status, unspecified eye; Y92.89 Other specified places as the place of occurrence of the external cause
CPT/HCPCS: 36415; 71045; 74176; 80048; 80053; 81001; 83605; 83735; 84145; 85025; 85610; 87040; 87081; 87088; 93005; 96365; 99285; G0378; J1644; J2001; J2020; J2250; J2270; J2405; J2543; J2704; J3010; J7030

== ENCOUNTER 2020-02-08 08:20 | Outpatient (CLI) | payer MEDICARE ==
[~2020-02-08] VITALS: Ht 152.4 cm; Wt 81.2 kg
[~2020-02-08 08:20] MED LIST changes: -AMOX-580 PO; -BUSP5TAB3 PO; -FAMO40TA58 PO; +LINE600T14 PO; -MELO-100 PO; -MONT10TA21 PO; -PER10325T PO
[2020-02-08] MEDS ORDERED: albuterol 2.5 MG/3 ML nebule NEB ONE (09:35)
[2020-02-08 10:58] LABS: BASOPHILS % (AUTO) 0.3 % (0-1); EOSINOPHILS # (AUTO) 0.1 X10'3 (0-0.9); EOSINOPHILS % (AUTO) 1.3 % (0-6); HEMATOCRIT 37.7 % (35.0-45.0); HEMOGLOBIN 12.3 g/dl (12.0-16.0); LYMPHOCYTES # (AUTO) 3.7 X10'3 (1.1-4.8); LYMPHOCYTES % (AUTO) 40.7 % (21-51); MEAN CORPUSCULAR HGB CONC 32.7 g/dL (33.0-36.5); MEAN CORPUSCULAR VOLUME 88.5 FL (78-98); MEAN PLATELET VOLUME 7.5 FL (7.4-10.4); MONOCYTES # (AUTO) 0.6 X10'3 (0-0.9); NEUTROPHILS # (AUTO) 4.6 X10'3 (1.8-7.7); NEUTROPHILS % (AUTO) 50.7 % (42-75); PLATELET COUNT 330 X10'3 (140-440); RED BLOOD COUNT 4.26 X10'6 (4.20-5.60); RED CELL DISTRIBUTION WIDTH 14.5 % (11.5-14.5); WHITE BLOOD COUNT 9.1 X10'3 (4.5-11.0)
[2020-02-08 11:00] LABS: PARTIAL THROMBOPLASTIN TIME 30 SECONDS (22-32)
[2020-02-08 11:08] LABS: ALANINE AMINOTRANSFERASE 24 U/L (12-78); ALBUMIN 4.1 G/DL (3.4-5.0); ALBUMIN/GLOBULIN RATIO 1.1 (1.1-1.5); ALKALINE PHOSPHATASE 77 IU/L (46-116); ANION GAP 11 (8-16); ASPARTATE AMINO TRANSFERASE 22 U/L (10-37); BILIRUBIN,TOTAL 0.4 MG/DL (0.1-1.0); BLOOD UREA NITROGEN 15 MG/DL (7-18); BUN/CREATININE RATIO 14.7 (6.6-38.0); CHLORIDE 106 MMOL/L (99-107); CREATININE 1.02 MG/DL (0.40-0.90); GLUCOSE 115 MG/DL (70-104); POTASSIUM 3.3 MMOL/L (3.5-5.1); SODIUM 143 MMOL/L (135-145); TOTAL CARBON DIOXIDE 25.7 MMOL/L (24-32); TOTAL PROTEIN 7.9 G/DL (6.4-8.2); eGFR 52 ML/MIN
== END 2020-02-08 23:59 | disposition home or self-care (01) ==
LOC: RT 08:20
PROVIDERS: ATTEND Internal Medicine Cardiovascular Disease
DX: I65.23 Occlusion and stenosis of bilateral carotid arteries (principal); I51.7 Cardiomegaly; R94.2 Abnormal results of pulmonary function studies; M19.90 Unspecified osteoarthritis, unspecified site; M85.88 Other specified disorders of bone density and structure, other site; I35.0 Nonrheumatic aortic (valve) stenosis
CPT/HCPCS: 36415; 71046; 80053; 85025; 85610; 85730; 93880; 94060; 94727; 94729; 94760

== ENCOUNTER 2020-02-10 09:19 | Outpatient (CLI) | payer MEDICARE ==
[2020-02-10] MEDS ORDERED: iohexol 350MG/ML 100ml bottle IV ONE (09:37)
[2020-02-10] MEDS ORDERED: iohexol 350 MG/ML 50ML vial IV ONE (09:37)
== END 2020-02-10 23:59 | disposition home or self-care (01) ==
LOC: 64 CT 09:19
PROVIDERS: ATTEND Internal Medicine Cardiovascular Disease
DX: K43.5 Parastomal hernia without obstruction or gangrene (principal); I35.0 Nonrheumatic aortic (valve) stenosis
CPT/HCPCS: 71275; 74174; Q9967

== ENCOUNTER 2020-03-22 10:03 | Day surgery (SDC) | payer MEDICARE, OTHER ==
[2020-03-17 13:34] LABS: BASOPHILS % (AUTO) 0.5 % (0-1); EOSINOPHILS # (AUTO) 0.1 X10'3 (0-0.9); HEMATOCRIT 36.5 % (35.0-45.0); HEMOGLOBIN 11.8 g/dl (12.0-16.0); LYMPHOCYTES # (AUTO) 1.6 X10'3 (1.1-4.8); LYMPHOCYTES % (AUTO) 24.7 % (21-51); MEAN CORPUSCULAR HEMOGLOBIN 28.6 PG (27.0-31.0); MEAN CORPUSCULAR HGB CONC 32.4 g/dL (33.0-36.5); MEAN CORPUSCULAR VOLUME 88.3 FL (78-98); MEAN PLATELET VOLUME 7.8 FL (7.4-10.4); MONOCYTES # (AUTO) 0.6 X10'3 (0-0.9); MONOCYTES % (AUTO) 9.2 % (2-12); NEUTROPHILS # (AUTO) 4.2 X10'3 (1.8-7.7); NEUTROPHILS % (AUTO) 64.6 % (42-75); PLATELET COUNT 291 X10'3 (140-440); RED BLOOD COUNT 4.13 X10'6 (4.20-5.60); RED CELL DISTRIBUTION WIDTH 15.2 % (11.5-14.5); WHITE BLOOD COUNT 6.5 X10'3 (4.5-11.0)
[2020-03-17 13:38] LABS: ALBUMIN 3.9 G/DL (3.4-5.0); ANION GAP 7 (8-16); BLOOD UREA NITROGEN 18 MG/DL (7-18); BUN/CREATININE RATIO 18.6 (6.6-38.0); CALCIUM 9.9 MG/DL (8.5-10.1); CHLORIDE 106 MMOL/L (99-107); CREATININE 0.97 MG/DL (0.40-0.90); GLUCOSE 102 MG/DL (70-104); POTASSIUM 3.9 MMOL/L (3.5-5.1); SODIUM 141 MMOL/L (135-145); TOTAL CARBON DIOXIDE 28.5 MMOL/L (24-32); eGFR 55 ML/MIN
[2020-03-17 13:43] LABS: PARTIAL THROMBOPLASTIN TIME 30 SECONDS (22-32)
[~2020-03-22] VITALS: Ht 147.3 cm; Wt 78.2 kg
[2020-03-22] VITALS (9 sets, daily range): BP systolic 119–181; BP diastolic 67–90
[2020-03-22] MEDS ORDERED: normal saline 1,000 ML IV SCH (10:25)
[2020-03-22] MEDS ORDERED: LORazepam 0.5 MG tablet PO PRN (10:25)
[2020-03-22] MEDS ORDERED: MULT-1085 PO (10:38)
[2020-03-22] MEDS ORDERED: ALEVE PO (10:38)
[2020-03-22] MEDS ORDERED: LEVO125C4 PEG (10:38)
[2020-03-22] MEDS ORDERED: CHOL100046 PO (10:38)
[2020-03-22] MEDS ORDERED: midazolam 2 mg/2 ml injection ONE ×2 (11:37→12:04)
[2020-03-22] MEDS ORDERED: fentaNYL/PF 50MCG/1 ML 2ML syringe ONE (11:37)
[2020-03-22] MEDS ORDERED: iohexol 350MG/ML 100ml bottle IV ONE (11:38)
[2020-03-22] MEDS ORDERED: LIDOcaine 1% (10mg/ml)w/preservative injection 20ml MDV ONE (11:38)
[2020-03-22] MEDS ORDERED: heparin 1,000 UNITS/NS 500ml 500 ML ONE (11:39)
[2020-03-22] MEDS ORDERED: OXAZEpam 15mg capsule PO PRN (12:50)
[2020-03-22] MEDS ORDERED: ondansetron/PF 4mg/2ml inj IV PRN (12:50)
[2020-03-22] MEDS ORDERED: HYDROcodone/acetaminophen 10/325mg tab PO PRN (12:50)
[2020-03-22] MEDS ORDERED: HYDROcodone/acetaminophen 5mg/325mg tablet PO PRN (12:50)
[2020-03-22] MEDS ORDERED: proCHLORperazine 10 MG/2 ml inj IV PRN (12:50)
== END 2020-03-22 16:00 | disposition home or self-care (01) ==
LOC: SSTAY O 10:03
PROVIDERS: ATTEND Internal Medicine Interventional Cardiology
DX: I35.0 Nonrheumatic aortic (valve) stenosis (principal); I25.10 Atherosclerotic heart disease of native coronary artery without angina pectoris; E03.9 Hypothyroidism, unspecified; G47.33 Obstructive sleep apnea (adult) (pediatric); E78.5 Hyperlipidemia, unspecified; I47.9 Paroxysmal tachycardia, unspecified; D64.9 Anemia, unspecified; Z86.73 Personal history of transient ischemic attack (TIA), and cerebral infarction without residual deficits; Z98.890 Other specified postprocedural states; Z79.82 Long term (current) use of aspirin; Z79.899 Other long term (current) drug therapy; Z79.01 Long term (current) use of anticoagulants; Z93.3 Colostomy status
CPT/HCPCS: 36415; 80048; 85025; 85610; 85730; 93005; 93454; 99152; C1769; J1644; J2001; J2250; J3010; Q9967; A4620; A6258